=== PATIENT | male | born 1980 ===

== ENCOUNTER 2025-03-27 06:03 | Emergency (ER) | payer MEDICAID, SELFPAY ==
--- OUTSIDE RECORDS SUMMARY | 2015-09-12 19:00 | XMS_ITS | Continuity of Care Document ---
Author Organization BALDEMAR Castelan Address [address] [facility] [facility] [facility] [address] [place] [address] Phone Care Team Providers Care Executive Wellness Programs Director Name Role Phone Unavailable Unavailable Unavailable Allergies, [...] Providers Copied on Encounter BALDEMAR Castelan, [address], [place], [place], [address], [place] tel:[phone] [facility] No Information 5 No Information Referring Provider: Donell June MD, [address], [place], [address]. tel:[phone] Offic/outpt E&m Estab Mod-hi 2 Flip, [facility], [address], [place], [place], [address], [place] tel:[phone] [facility] No Information 3 Ynes Cannon. [address], [address], [place], [address], [place]. tel:[phone] Referring Provider: REFERRAL SELF, JODY. Flip [facility], [address], [place], [place], [address], [place] tel:[phone] Erica Castelan [facility] 7390 No Information 3 Candelario DPT Cricket. [address], [place], [place], [address], [place]. tel:[phone] Referring Provider: REFERRAL SELF, [place]. Flip [facility], [address], [place], [place], [address], [place] tel:[phone] Erica Castelan [facility] [address] No Information 3 Candelario DPT Cricket. [address], [place], [place], [address], [place]. tel:[phone] Referring Provider: REFERRAL SELF, JODY. Flip [facility], [address], [place], [place], [address], [place] tel:[phone] Erica Castelan [facility] [address] No Information 3 Candelario DPT Cricket. [address], [place], [place], [address], [place]. tel:[phone] Referring Provider: REFERRAL SELF, JODY. Flip [facility], [address], [place], [place], [address], [place] tel:[phone] [facility] No Information 3 Eden Pierre. [address], [place], [address], [place]. tel:[phone] Referring Provider: REFERRAL SELF, [place]. Offic/outpt E&m Estab Mod-hi 2 Flip [facility], [address], [place], [place], [address], [place] tel:[phone] [facility] No Information 3 Schwemm Mya. [address], [place], [place], [address], [place]. tel:[phone] Referring Provider: REFERRAL SELF, [place]. Offic/outpt E&m Estab Mod-hi 2 Flip [facility], [address], [place], [place], [address], [place] tel:[phone] [facility] No Information 3 Schwemm Mya. [address], [place], [place], [address], [place]. tel:[phone] Referring Provider: REFERRAL SELF, JODY. Flip, [facility], [address], [place], [place], [address], [place] tel:[phone] [place] Castelan [facility] [address] No Information 3 Luann Marjorie. [address], [address], [place], [address], [place]. tel:[phone] Referring Provider: REFERRAL SELF, [place] Offic/outpt E&m New Mod-hi 45 Flip [facility], [address] [facility] [address], [place], [place], [address], [place] tel:[phone] [facility] No Information 3 Luciano Roque. [address] [facility], [address], [place], [place], [address], [place]. tel:[phone] Referring Provider: REFERRAL SELF, JODY. Family History [...]
--- OUTSIDE RECORDS SUMMARY | 2021-10-31 11:14 | XMS_ITS | Continuity of Care Document ---
Author Organization [facility] sudarshan Address [address] [place] [phone] Phone Care Team Providers Care Supervisor Accounting Clerks Name Role Phone Will Ata LEO Unavailable Unavailabl e Allergies, Adverse Reactions, Alerts Substance Reaction Status Criticality aspartame Active No Information DIPHENHYDRAMINE HCL Active No Infor mation Medications Medication Instructions Dosage Effective Dates (start - stop) Status Comments Ativan 1 mg tablet take 0.5 - 2 Tablet by oral route 2 times every day as needed 0.5 MG - Active oxycodone 5 mg tablet take 1 - 2 Tablet by ORAL route every 4 - 6 hours prn, max 4/day 5 MG - Active Procedures Procedure Date OFFICE/OUTPATIENT VISIT, EST OFFICE/OUTPATIENT VISIT, EST OFFICE CONSULTATION Advance Directives Directive Yes / No Effective Date File Name No Information Encounters Encounter Description Practice Location Reason(s) For Visit Diagnoses Date Provider Providers Copied on Encounter [facility], [address] [place], [place], [id number] , [place] tel:[phone] [facility] No Information 2 Will Ata. [address] [place], [place], [address] , [place]. tel:[phone] OFFICE/OUTPAT IENT VISIT, EST [facility], [address] [place], [place], [id number] , [place] tel:[phone] [facility] [place] Back Pain (chief complaint) LumbagoDegeneration of lumbar or lumbosacral intervertebral disc Sep-2 1-201 5 Abad Courtney. [address] [place], [id number] , [place]. tel: [phone] Referring Provider: Ivonne Curiel [address], [place], [address]. tel:[phone] OFFICE/OUTPAT IENT VISIT, EST [facility], [address] [place], [id number] , [place] tel: [phone] [facility] [place] Back Pain (chief complaint) LumbagoDegeneration of lumbar or lumbosacral intervertebral discCurrent use of a medication 5 Abad Courtney. [address] [place], [address] , [place]. tel: [phone] Referring Provider: Ivonne Curiel [address], [place], [address]. tel:[phone] [facility], [address] [facility] [place], [id number] , [place] tel: [phone] [facility] [place] Current use of a medication 5 Abad Courtney. [address] [facility] [place], [address] , [place]. tel: [phone] OFFICE CONSULTATION [facility], [address] [facility] [place], [address] , [place] tel: [phone] [facility] [place] Back Pain (chief complaint) Degeneration of lumbar or lumbosacral intervertebral discLumbago 0 5 Abad Courtney. [address] [place], [id number] , [place]. tel:[phone] Referring Provider: Ivonne Curiel [address], [place], [address]. tel:[phone] Family History Family Member Type Diagnosis Age At Onset No Information Payers Payer name Insurance type Covered green party ID Authoriza tipiyush(s) Blue Cross Blue Shield Of [facility] [id number] 00 Social History Type Description Quantity Date [...] to continue with this regimen. Back Pain (comments) This patien t is referred by Dr. Londono.Karel is here today for his inital consult regarding his low back pain which began 10 years ago. He states he went 3 years without any treatment and eventually had an MRI taken which showed a herniated disc. He had his imaging done at [facility]. He consulted a surgeon at [facility] who did not recommend surgery. He has done injections with some relief and relies mostly on Tramadol for pain relief. He also has tried Gabapentin which gave him headaches, as well as other muscle relaxers. He currently does pool therapy which he states gives him significant relief. Back Pain Onset: 10 years ago. Severity level is moderate. Duration: chronic. Location of pain is middle back, lower back and gluteal area. Pain is radiated to the Right Leg.The patient describes the pain as an ache and sharp. Symptoms are aggravated by daily activities, sitting and standing. Symptoms are relieved by heat, ice, lying down, pain meds/drugs and rest. Functional Status Date Functional Assessmen t No Information Instructions Date Instruction Additional Infor mation No Information Assessments Type Assessment Date No Information Patient Care Teams Name Effective Dates (start - stop) Status Members No Information
[2025-03-27 06:15] VITALS: BP 157/64; PULSE 62; RESP 18; TEMP 36.8; O2SAT 99; BMI 30.3
--- NOTE | 2025-03-27 06:29 | ED.GENADULT ---
HPI - General Adult General Chief complaint: Unspecified Complaint, Adult Stated complaint: rechecked for a refill on a medication Time Seen by Provider: 03/27/25 06:20 History of Present Illness HPI narrative: Patient reports use of methadone for years. States that he typically takes it ?early in the morning?. This morning at around 4:00 a.m. when he went to take his last dose of his medication, he reports that his dog kick did over into the toilet. Patient states that he is already starting to feel nauseated and shaky as a result. Reports that his last dose was yesterday at around 5:00 a.m.. He reports nausea, body aches, shakiness and anxiety. He denies use of any other illicit drugs. He denies any injury or trauma. He reports that he is due to visit his clinic this morning. Tells me the appointment is at 5:00 a.m., was told to come here. The bit confusing , as if he were due for his appointment, he would have been given more medication. And is more likely that his appointment when happen tomorrow. Patient does not have an address listed within our system, he does not have a primary care doctor within our system. My nursing team did pull up his records through [employer], it lists a [place] address, patient has not yet been registered to verify if this is still accurate. He reports that his clinic is [facility] in [place]. Vital signs were reviewed prior to going into the room with the patient. Visually, as soon as I enter the room, he tells me that he is going to throw up and I give him an emesis bag and he wrecked his several times and does not vomit. The emesis bag is fully clean. He did not have any of this behavior prior to my entering the room. I verify his story and began asking questions. I let him know that since he is not an established patient here, we do not have his methadone prescription, we would not have access to the medication, we would not be giving him methadone or another opiate today. He is welcome to contact his opiate clinic and if they feel it is appropriate to give him another dose, they are welcome to do so, but we will not be doing that as that is not part of his medication arrangement. I offered treatment with another medications such as Tylenol and some Zofran for his nausea which he declined and elected to leave against medical advice. Opiate withdrawal can be uncomfortable but it would be unexpected that he would be having symptoms just 24 hours after last dose due to the long half-life of methadone. Patient has elected to leave against medical advice, he is encouraged to contact his opiate clinic for further guidance. Related Data Home Medications ?Medication ?Instructions ?Recorded ?Confirmed methadone 10 mg tablet 50 mg PO DAILY 03/27/25 03/27/25 Allergies Allergy/AdvReac Type Severity Reaction Status Date / Time diphenhydramine (From Allergy Mild Hives Verified 03/27/25 06:18 Benadryl) [facility] Medical History (Updated 03/27/25 @ 06:38 by Bernadette Soliman MD) H/O drug abuse ?F19.11 - Other psychoactive substance abuse, in remission (ICD-10) [place] (generalized anxiety disorder) ?F41.1 - Generalized anxiety disorder (ICD-10) Depression, recurrent ?F33.9 - Major depressive disorder, recurrent, unspecified (ICD-10) Thrombocytopenia ?D69.6 - Thrombocytopenia, unspecified (ICD-10) TBI (traumatic brain injury) ?S06.9XAA - Unspecified intracranial injury with loss of consciousness status unknown, initial encounter (ICD-10) Seizures ?R56.9 - Unspecified convulsions (ICD-10) Intussusception ?K56.1 - Intussusception (ICD-10) Back pain ?M54.9 - Dorsalgia, unspecified (ICD-10) Anxiety disorder ?F41.9 - Anxiety disorder, unspecified (ICD-10) Surgical History (Updated 03/27/25 @ 06:25 by Hiploito Velazquez RN) History of wisdom tooth extraction ?K08.409 - Partial loss of teeth, unspecified cause, unspecified class (ICD-10) Social History Smoking Status: Former smoker Do you use any of these nicotine containing products: Vaping Products Second hand tobacco smoke exposure: No How often do you have a drink containing alcohol: never AUDIT-C Alcohol total score: 0 Non-prescribed substance use: other Non-prescribed substance use details: methadone Exam Const: Vital Signs, click to edit/add: Vital Signs - 24 hr 03/27/25 06:15 Temperature 98.3 F Pulse Rate [Right Pulse Oximeter] 62 Respiratory Rate 18 Blood Pressure [Ri ght Upper Arm] 157/64 H Pulse Oximetry 99 Oxygen Delivery Me thod Room Air Course Vital Signs Vital signs: Initial Vital Signs Temperature 98.3 F 03/27/25 06:15 Temperature Source Temporal Artery Scan 03/27/25 06:15 Pulse Rate 62 03/27/25 06:15 Respiratory Rate 18 03/27/25 06:15 Blood Pressure 157/64 H 03/27/25 06:15 Blood Pressure Mean 95 03/27/25 06:15 Blood Pressure Position Supine 03/27/25 06:15 Pulse Oximetry 99 03/27/25 06:15 Oxygen Delivery Method Room Air 03/27/25 06:15 Vital Signs Temperature 98.3 F 03/27/25 06:15 Pulse Rate 62 03/27/25 06:15 Respiratory Rate 18 03/27/25 06:15 Blood Pressure 157/64 H 03/27/25 06:15 Pulse Oximetry 99 03/27/25 06:15 Oxygen Delivery Method Room Air 03/27/25 06:15 Temperature 98.3 F 03/27/25 06:15 Pulse Rate 62 03/27/25 06:15 Respiratory Rate 18 03/27/25 06:15 Blood Pressure 157/64 H 03/27/25 06:15 Pulse Oximetry 99 03/27/25 06:15 Oxygen Delivery Method Room Air 03/27/25 06:15 Discharge Plan Discharge Clinical Impression: Opiate withdrawal Patient Disposition: Left Against Medical Advice Prescriptions: No Action methadone 10 mg tablet 50 mg PO DAILY Stand Alone Forms: MyHealth Info Instructions
--- OUTSIDE RECORDS SUMMARY | 2025-03-27 06:48 | XMS_ITS | Clinical Summary ---
Author Organization [facility] Address [address] , [address] [place] [address] Phone Care Team Providers Care Personal Property Assessor Name Role Phone Rufus Mckeon MD [id number] [phone] Conditions or Problems Problem Name Problem Code Onset Date Status Entry Date Provider Comment Standard Description Annotate Cognitive changes 347199826 (SNOMED CT) 12/19 Active 12/19 Rufus Mckeon MD Impaired cognition MRI, brain, abnormal 174594400 (SNOMED CT) 12/19 Active 12/19 Rufus Mckeon MD Magnetic resonance imaging of brain abnormal Opioid dependence with opioid-induc ed disorder F11.29 (ICD-10-CM ) 06/10 Active 12/19 Rufus Mckeon MD Opioid dependence with unspecified opioid-induced disorder Imported from [facility]: [facility] (19-Dec-2021 at 01:43:48 PM) Lumbar radiculopath y 821291433 (SNOMED CT) 04/28 Active 12/19 Rufus Mckeon MD Lumbar radiculopathy Imported from [facility]: [facility] (19-Dec-2021 at 01:43:48 PM) Injury of knee, leg, ankle and foot S89.90xA (ICD-10-CM ) Active 12/19 Rufus Mckeon MD Unspecified injury of unspecified lower leg, initial encounter Imported from [facility]: [facility] (19-Dec-2021 at 01:43:48 PM) History of heroin use Z87.898 (ICD-10-CM ) 06/04 Active 12/19 Rufus Mckeon MD Personal history of other specified conditions Imported from [facility]: [facility] (19-Dec-2021 at 01:43:48 PM) 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 (19-Dec-2021 at 01:43:07 PM) Depression, recurrent 167203025 (SNOMED CT) 11/14 Active 12/19 Rufus Mckeon MD Recurrent depression Imported from [facility]: [facility] (19-Dec-2021 at 01:43:07 PM) Chronic bilateral low back pain M54.50 (ICD-10-CM ) 05/10 Active 12/19 Rufus Mckeon MD Low back pain, unspecified Imported from [facility]: [facility] (19-Dec-2021 at 01:43:07 PM) Benzodiazepi ne dependence 347406519 (SNOMED CT) 05/30 Active 12/19 Rufus Mckeon MD Benzodiazepine dependence Imported from [facility]: [facility] (19-Dec-2021 at 01:43:07 PM) Amnesia 17176649 (SNOMED CT) 11/14 Active 12/19 Rufus Mckeon MD Amnesia Imported from [facility]: [facility] (19-Dec-2021 at 01:43:07 PM) Medications Medication Instructions Start Date Stop Date Generic Name NDC Provider DIVALPROEX SODIUM 500 MG TBEC Take 3 tab q AM and 4 tabs q PM divalproex [id number] Rufus Mckeon MD DIVALPROEX SODIUM 500 MG TBEC Take 3 tab q AM and 4 tabs q PM 6 divalproex [id number] eBrnadette Brenner RN DIVALPROEX SODIUM 500 MG TBEC Take 4 tablet by mouth twice a day Take 4 tab q AM and 5 tabs q PM 6 divalproex [id number] Bernadette Brenner RN DIVALPROEX SODIUM 500 MG TBEC Take 4 tablet by mouth twice a day 6 divalproex [id number] Bernadette Brenner RN DIVALPROEX SODIUM 500 MG TBEC 4 tablet by mouth once a day 6 divalproex [id number] Bernadette Brenner RN METHADONE HCL 5 MG/5ML SOLN Take ml by mouth methadone [id number] Kimberli Brenner RN ALPRAZOLAM 2 MG TABS 1 tablet by mouth once a day 0 alprazolam [id number] Bernadette Brenner RN ALPRAZOLAM 2 MG TABS One po qd 0 alprazolam [id number] QIEUSER QIEUSER METHADONE HCL 5 MG/5ML SOLN Take by mouth. methadone 25554876453 QIEUSER QIEUSER DIVALPROEX SODIUM 500 MG TBEC 4 tablets daily 6 divalproex [id number] QIEUSER QIEUSER Medications Administered No information available. Allergies, Adverse Reactions, Alerts Allergy Name Reaction Description Start Date Severity Statu s Provider DIPHENHYDRAMINE Rash Mild Active Segun Mckeon MD DIPHENHYDRAMINE HCL Rash Mild Active Rufus Mckeon MD ACETONE Rash Severe Active Rufus christian MD Results Date Name Value Unit Range Flag Description Office Visit: Office Visit S eizures, amnesia 3 MRIs [facility] 2 fax SMOK STATUS current some day smoker Tobacco smoking status ABSOLUTE MON 0.7 10*3/uL Monocyte s [#/volume] in Blood GLOBULIN SER 2.7 Globulin , Serum EGFR NOT AFA >60 mL/min/1. 73m2 Glomerular filtratio n rate/1.73 sq M.predicted among non-blacks [Volume Rate/Area] in Serum, Plasma or Blood by Creatinine-based formula (MDRD) ABS EOS 0.1 {Cells}/u L Eosinophils [#/volume] in Blood CA 8.6 mg/dL Calcium [Mass /volume] in Serum or Plasma ABSOLUTE BAS normal 10*3/uL Basophil s [#/volume] in Blood ABS LYMPHOCY 1.6 10*3/uL Absolute Lymphocytes ABS NEUTROPH 3.4 10*3/uL Neutroph ils [#/volume] in Blood GFR >60 mL/min Glomerular fi ltration rate/1.73 sq M.predicted among non-blacks [Volume Rate/Area] in Serum, Plasma or Blood by Creatinine-based formula (MDRD) % BASO AUTO 0.5 % basophils as percent of blood leukocytes, automated count % EOS AUTO 1.0 % Eosinophil s/100 leukocytes in Blood by Automated count CO2 TOTAL 26 mmol/L carbon diox melinda, serum, total GLUCOSE SER 105 mg/dL Glucose [ Mass/volume] in Serum or Plasma MPV 9.8 fL Platelet mean volume [Entitic volume] in Blood by Rajeev BUN/CREAT 9 Urea nitrogen/Creatinine [Mass Ratio] in Serum or Plasma MONOCYTE % 11.7 % Monocytes/ 100 leukocytes in Blood by Automated count MCH 31.8 pg MCH [Entitic mass] by Automated count RDW 14.2 % Erythrocyte distribution width [Ratio] by Automated count MCHC 33.7 % MCHC [Mass/vo lume] by Automated count PMN % 59.0 % Neutrophils/1 00 leukocytes in Blood by Automated count MCV 95 fL MCV [Entitic volume] by Automated count ANION GAP 6 Anion gap 4 in Serum or Plasma SODIUM 136 mmol/L Sodium [Moles /volume] in Serum or Plasma A/G RATIO 1.3 Albumin/Maryellen bulin [Mass Ratio] in Serum or Plasma WBC 5.8 10*3/mm3 Leukocytes [ #/volume] in Blood by Automated count RBC 4.15 10*6/mm3 Erythrocytes [#/volume] in Blood by Automated count PLATELETS 42 10*3/mm3 Platelets [#/volume] in Blood by Automated count HGB 13.2 g/dL Hemoglobin [Mass/volume] in Blood HCT 39.2 % Hematocrit [V olume Fraction] of Blood by Automated count BILI TOTAL 0.2 mg/dL Bilirubin. total [Mass/volume] in Serum or Plasma SGPT (ALT) 13 U/L Alanine aminotransferase [Enzymatic activity/volume] in Serum or Plasma SGOT (AST) 16 U/L Aspartate aminotransferase [Enzymatic activity/volume] in Serum or Plasma PROTEIN, TOT 6.2 g/dL Protein [Mass/volume] in Serum or Plasma POTASSIUM 4.7 mmol/L Potassium [Moles/volume] in Serum or Plasma TSH 3.32 u[iU]/mL Thyrotropin [Units/volume] in Serum or Plasma CREATININE 0.98 mg/dL Creatinine [Mass/volume] in Serum or Plasma CHLORIDE 104 mmol/L Chloride [Moles/volume] in Serum or Plasma BUN 9 mg/dL Urea nitrogen [Mass/volume] in Serum or Plasma ALK PHOS 66 U/L Alkaline stacy sphatase [Enzymatic activity/volume] in Blood ALBUMIN 3.5 g/dL Albumin [Mass /volume] in Serum or Plasma Internal Other: Authorizatio n - OBS [email or web address] Yes Authoriza tion: Release of Information - Authorize [facility] - Payment and Healthcare Operations ROIAUTHOTHER Yes Authoriz ation: Release of Information - Authorize Others/Insurance - Payment and Healthcare Operations HIECONSENT Yes Consent To Release information to the Health Information Exchange (HIE) [email or web address] Yes Authorizat ion: Authorization for [facility] to leave messages, voicemail, send text messages, send emails AUTHRELHCARE Yes Authoriz ation: Release/Retrieval of Information to/from Healthcare Facilities, Pharmacy Benefit Payers and Providers AUTHPRIVPRAC Yes Authoriz ation: Notice of privacy practices AUTHBENEFIT Yes Authoriza tion: Assignment of Benefits and Payment Agreement Internal Other: Verbal Autho rization/Emergency Contact - OBS VERBAL_EMER Done Verbal au thorization and emergency contact Plan of Care Type Date Detail Pending order CBC with Diff/Pl atelet Pending order Valproic Acid To carmencita (Depakote) Pending order CBC with Diff/Pl atelet Pending order Valproic Acid To carmencita (Depakote) Pending order Sleep Consult Pending order Sleep Consult Pending order Calcium Serum Pending order Vitamin B12 Pending order CBC with Diff/Pl atelet Pending order Comp Metabolic P suman (14) Pending order TSH Pending order Ammonia Pending order Valproic Acid To carmencita (Depakote) Pending order ALT (SGPT) Pending order AST (SGOT) Pending order CBC with Diff/Pl atelet Pending order Valproic Acid To carmencita (Depakote) Pending order EEG 3hr Pending order Follow up after testing in clinic or telemedicine Pending order Follow up after testing in clinic or telemedicine Pending order Follow up as nee ded Pending order TSH Pending order ANCA Pending order CBC with Diff/Pl atelet Pending order ESR (Sedimentati on Rate) Pending order Protein C Panel Pending order Protein S Panel Pending order Factor V Leiden Mutation Pending order Neuropsychology Evaluation Pending order EEG Sleep Depriv ed (41min) Pending order MRI-Brain W/WO Pending order MRI-Brain W/WO Pending order Driving Evaluati on Pending order Driving Evaluati on Pending order ALT (SGPT) Pending order AST (SGOT) Pending order CBC with Diff/Pl atelet Pending order Valproic Acid To carmencita (Depakote) Procedures Code Procedure Name Date Entry Date ORDERS Calcium Serum ORDERS Vitamin B12 ORDERS CBC with Diff/Platelet 05/12 ORDERS Comp Metabolic Panel (14) 20 05/05/29 ORDERS TSH ORDERS Ammonia ORDERS Valproic Acid Total (Depakote) ORDERS ALT (SGPT) ORDERS AST (SGOT) ORDERS CBC with Diff/Platelet 05/08 ORDERS Valproic Acid Total (Depakote) ORDERS EEG 3hr CPT-40759 EEG Setup CPT-54917 Video EEG 2-12hrs () 05/07 CPT-77744 Video EEG 2-12hrs (Nurys) 202 10/22/23 ORDERS Follow up as needed ORDERS TSH ORDERS ANCA ORDERS CBC with Diff/Platelet 03/27 ORDERS ESR (Sedimentation Rate) 202 10/21/13 ORDERS Protein C Panel ORDERS Protein S Panel ORDERS Factor V Leiden Mutation 202 10/21/13 ORDERS Neuropsychology Evaluation 2 CPT-30260 Npsy Interview w/Provider - 1st hour 2021 CPT-13189 Npsy Interp/Rpt by Provider - 1st hour 05/03/23 CPT-70097 Npsy Interp/Rpt by Provider - 2 hours 10/20/22 CPT-20088 Npsy Test by Tech (2+ Tests) - 1st 30 min CPT-99936 Npsy Test by Tech (2+ Tests) - 3 hours 05/03/23 CPT-73066 EEG EXTENDED 41-60mins (END) ORDERS EEG Sleep Deprived (41min) 2 ORDERS ALT (SGPT) ORDERS AST (SGOT) ORDERS CBC with Diff/Platelet 12/19 ORDERS Valproic Acid Total (Depakote) Vital Signs Date Name Value Unit Description BMI (Body Mass Index) 29.75 kg/m2 Bod y Mass Index (Ratio) BP Diastolic 79 mm[Hg] blood pressu re, diastolic BP Systolic 130 mm[Hg] blood pressur e, systolic Heart Rate 68 /min pulse rate Height 72.99 [in_us] height E&M Respiratory Rate 11 /min respirat ory rate E&M Weight Measured 224.6 [lb_av] weight E& M Weight Measured 224.6 [lb_av] weight E& M Weight Measured 102.09 kg weight in kilograms E&M Immunizations No information available. Advance Directives No information available.
[2025-03-27 06:49] VITALS: BP 157/64; PULSE 62; RESP 18; TEMP 36.8
== END 2025-03-27 06:49 | disposition left against medical advice (07) ==
LOC: ED 06:47
PROVIDERS: Emergency Provider Family Medicine
DX: F11.23 Opioid dependence with withdrawal (principal); Z87.891 Personal history of nicotine dependence; Z53.21 Procedure and treatment not carried out due to patient leaving prior to being seen by health care provider
CPT/HCPCS: 99281; 99282; 99283

== ENCOUNTER 2025-04-30 17:58 | Outpatient (CLI) | payer BC, SELFPAY | END 2025-04-30 17:59 | disposition home or self-care (01) | LOC: AMB 05-01 15:21 | PROVIDERS: Visit Provider Emergency Medicine | DX: R56.9 Unspecified convulsions (principal); R11.10 Vomiting, unspecified | CPT/HCPCS: A0425; A0427 ==

== ENCOUNTER 2025-04-30 18:42 | Emergency (ER) | payer BC, SELFPAY ==
--- OUTSIDE RECORDS SUMMARY | 2015-09-12 19:00 | XMS_ITS | Continuity of Care Document ---
Author Organization BALDEMAR Castelan Address [address] [place] [address] Phone Care Team Providers Care Activities Attendant Name Role Phone Unavailable Unavailable Unavailable Allergies, Adverse Reactions, Alerts Substance Reaction Status Criticality acetone Active No Information DIPHENHYDRAMINE HCL Rashes, sweating, dizziness Active No Information Medications Medication Instructions Dosage Effective Dates (start - stop) Status Comments methocarbamol 750 mg tablet take 1 Tablet by ORAL route every 8 hours 750 MG - Active Xanax 0.5 mg tablet take 1 (0.5MG) by oral route every day 0.5 MG - Active acetaminophen 500 mg capsule take as needed - Active Procedures Procedure Date No Show Visit Fee Offic/outpt E&m Estab Mod-hi 2 13 Therapeutic Procedure Neuromuscular Re-education Manual Therapy Manual Therapy Neuromuscular Re-education Neuromuscular Re-education Therapeutic Procedure Depomedrol 80mg Inject Joint Large Ultrason Guidan Needle Bx-rad 3 Offic/outpt E&m Estab Mod-hi 2 13 Offic/outpt E&m Estab Mod-hi 2 13 Phys Therap Eval Therapeutic Activities Neuromuscular Re-education Offic/outpt E&m New Mod-hi 45 3 QA DONE Advance Directives Directive Yes / No Effective Date File Name No Information Encounters Encounter Description Practice Location Reason(s) For Visit Diagnoses Date Provider Providers Copied on Encounter BALDEMAR Castelan, [address], [place], [place], [address], [place] tel:[phone] [facility] No Information 5 No Information Referring Provider: Donell June MD, [address], [place], [address]. tel:[phone] Offic/outpt E&m Estab Mod-hi 2 Flip, [facility], [address], [place], [place], [address], [place] tel:[phone] [facility] No Information 3 Ynes Cannon. [address], [address], [place], [address], [place]. tel:[phone] Referring Provider: REFERRAL SELF, JODY. Flip [facility], [address], [place], [place], [address], [place] tel:[phone] Erica Castelan [facility] [address] No Information 3 Candelario DPT Cricket. [address], [place], [place], [address], [place]. tel:[phone] Referring Provider: REFERRAL SELF[place] Flip [facility], [address], [place], [place], [address], [place] tel:[phone] Erica Castelan [facility] [address] No Information 3 Candelario DPT Cricket. [address], [place], [place], [address], [place]. tel:[phone] Referring Provider: REFERRAL SELF, JODY. Flip [facility], [address], [place], [place], [address], [place] tel:[phone] Erica Castelan [facility] [address] No Information 3 Candelario DPT Cricket. [address], [place], [place], [address], [place]. tel:[phone] Referring Provider: REFERRAL SELF, JODY. Flip [facility], [address], [place], [place], [address], [place] tel:[phone] [facility] No Information 3 Eden Pierre. [address], [place], [address], [place]. tel:[phone] Referring Provider: REFERRAL SELF[place]. Offic/outpt E&m Estab Mod-hi 2 Flip [facility], [address], [place], [place], [address], [place] tel:[phone] [facility] No Information 3 Schwemm Mya. [address], [address], [place], [place], [address], [place]. tel:[phone] Referring Provider: REFERRAL SELF[place] Offic/outpt E&m Estab Mod-hi 2 Flip [facility], [address], [place], [place], [address], [place] tel:[phone] [facility] No Information 3 Schwemm Mya. [address], [address], [place], [place], [address], [place]. tel:[phone] Referring Provider: REFERRAL SELF, JODY. Flip, [facility], [address], [place], [place], [address], [place] tel:[phone] Penningtonmartin Castelan [facility] [address] No Information 3 Luann Marjorie. [address], [address], [place], [place], [address], [place]. tel:[phone] Referring Provider: REFERRAL SELF[place] Offic/outpt E&m New Mod-hi 45 Flip [facility], [address], [place], [place], [address], [place] tel:[phone] [facility] No Information 3 Luciano Roque. [address], [address], [place], [place], [address], [place]. tel:[phone] Referring Provider: REFERRAL SELF, JODY. Family History Family Member Type Diagnosis Age At Onset No Information Payers Payer name Insurance type Covered republican ID Authoriza tion(s) No Information Social History Type Description Quantity Date Captured Comments Sex Male Smoking Status No Information Chief Complaint And Reason For Visit No Information Reason For Referral Reason For Referral No Information History Of Present Illness Encounter Date Complaint History Of Prese nt Illness No Information Functional Status Date Functional Assessmen t No Information Instructions Date Instruction Additional Infor mation No Information Assessments Type Assessment Date No Information Patient Care Teams Name Effective Dates (start - stop) Status Members No Information
--- OUTSIDE RECORDS SUMMARY | 2015-09-12 19:00 | XMS_ITS | Continuity of Care Document ---
Author Organization BALDEMAR Castelan Address [address] [facility] [address] [place] [address] Phone Care Team Providers Care Publishing Systems Analyst Name Role Phone Unavailable Unavailable Unavailable Allergies, [...] Providers Copied on Encounter BALDEMAR Castelan, [address], [place], [place], [address], [place] tel:[phone] [facility] No Information 5 No Information Referring Provider: Donell June MD, [address], [place], [address]. tel:[phone] Offic/outpt E&m Estab Mod-hi 2 Flip, [facility], [address], [place], [place], [address], [place] tel:[phone] [facility] No Information 3 Ynes Cannon. [address], [address], [place], [address], [place]. tel:[phone] Referring Provider: REFERRAL SELF, JODY. Flip [facility], [address], [place], [place], [address], [place] tel:[phone] [facility] [address] No Information 3 Candelario DPT Cricket. [address], [place], [place], [address], [place]. tel:[phone] Referring Provider: REFERRAL SELF, [place]. Flip [facility], [address], [place], [place], [address], [place] tel:[phone] [facility] [address] No Information 3 Candelario DPT Cricket. [address], [place], [place], [address], [place]. tel:[phone] Referring Provider: REFERRAL SELF, JODY. Flip [facility], [address], [place], [place], [address], [place] tel:[phone] [facility] [address] No Information 3 Candelario DPT Cricket. [address], [place], [place], [address], [place]. tel:[phone] Referring Provider: REFERRAL SELF, JODY. Flip [facility], [address], [place], [place], [address], [place] tel:[phone] [facility] No Information 3 Eden Pierre. [address], [place], [address], [place]. tel:[phone] Referring Provider: REFERRAL SELF, [place]. Offic/outpt E&m Estab Mod-hi [address] [facility], [address], [place], [place], [address], [place] tel:[phone] [facility] No Information 3 Schwemm Mya. [address], [place], [place], [address], [place]. tel:[phone] Referring Provider: REFERRAL SELF, [place]. Offic/outpt E&m Estab Mod-hi [address] [facility], [address], [place], [place], [address], [place] tel:[phone] [facility] No Information 3 Schwemm Mya. [address], [place], [place], [address], [place]. tel:[phone] Referring Provider: REFERRAL SELF, JODY. Flip, [facility], [address], [place], [place], [address], [place] tel:[phone] [facility] [address] No Information 3 Luann Marjorie. [address], [place], [place], [address], [place]. tel:[phone] Referring Provider: REFERRAL SELF, [place]. Offic/outpt E&m New Mod-hi [address] [facility], [address] [facility] [address], [place], [place], [address], [place] tel:[phone] [facility] No Information 3 Luciano Roque. [address] [facility], [address], [place], [place], [address], [place]. tel:[phone] Referring Provider: REFERRAL SELF, JODY. Family History Family Member Type Diagnosis Age At Onset No Information Payers Payer name Insurance type Covered green party ID Authoriza tion(s) No Information Social History [...]
--- OUTSIDE RECORDS SUMMARY | 2021-10-31 11:14 | XMS_ITS | Continuity of Care Document ---
Author Organization [facility] sudarshan Address [address] [place] [id number] Phone Care Team Providers Care Home Theatre Technician Name Role Phone Will Ata LEO Unavailable Unavailabl e Allergies, Adverse Reactions, Alerts Substance Reaction Status Criticality aspartame Active No Information DIPHENHYDRAMINE HCL Active No Infor mation Medications Medication Instructions Dosage Effective Dates (start - stop) Status Comments oxycodone 5 mg tablet take 1 - 2 Tablet by ORAL route every 4 - 6 hours prn, max 4/day 5 MG - Active Ativan 1 mg tablet take 0.5 - 2 Tablet by oral route 2 times every day as needed 0.5 MG - Active Procedures Procedure Date OFFICE/OUTPATIENT VISIT, EST OFFICE/OUTPATIENT VISIT, EST OFFICE CONSULTATION Advance Directives Directive Yes / No Effective Date File Name No Information Encounters Encounter Description Practice Location Reason(s) For Visit Diagnoses Date Provider Providers Copied on Encounter [facility], [address] [place], [place], [id number] , [place] tel:[phone] [facility] No Information 2 Will Ata. [address] [place], [place], [id number] , [place]. tel:[phone] OFFICE/OUTPAT IENT VISIT, EST [facility], [address] [place], [place], [id number] , [place] tel:[phone] [facility] Eric[place] Back Pain (chief complaint) LumbagoDegeneration of lumbar or lumbosacral intervertebral disc Sep-2 1-201 5 Abad Courtney. [address] [place], [id number] , [place]. tel: [phone] Referring Provider: Ivonne Curiel [address], [place], [address]. tel:[phone] OFFICE/OUTPAT IENT VISIT, EST [facility], [address] [place], [id number] , [place] tel: [phone] [facility] [place] Back Pain (chief complaint) LumbagoDegeneration of lumbar or lumbosacral intervertebral discCurrent use of a medication 5 Abad Courtney. [address] [place], [id number] , [place]. tel: [phone] Referring Provider: Ivonne Curiel [address], [place], [address]. tel:[phone] [facility], [address] [facility] [place], [id number] , [place] tel: [phone] [facility] [place] Current use of a medication 5 Abad Courtney. [address] [facility] [place], [id number] , [place]. tel: [phone] OFFICE CONSULTATION [facility], [address] [facility] [place], [address] , [place] tel: [phone] [facility] [place] Back Pain (chief complaint) Degeneration of lumbar or lumbosacral intervertebral discLumbago 0 5 Abad Courtney. [address] [place], [id number] , [place]. tel:[phone] Referring Provider: Ivonne Curiel [address], [place], [address]. tel:[phone] Family History Family Member Type Diagnosis Age At Onset No Information Payers Payer name Insurance type Covered alliance party ID Authoriza tipiyush(s) Blue Cross Blue Shield Of [facility] [id number] 00 Social History Type Description Quantity Date Captured Comments Sex Male Smoking Status No Information Chief Complaint And Reason For Visit No Information Reason For Referral Reason For Referral No Information History Of Present Illness Encounter Date Complaint History Of Myrna nt Illness Back Pain (comments) Karel is he re today for follow up evaluation relating to his low back pain. He states increased pain in his mid back and reports a previous x-ray showed DDD. Back Pain Severity level i s moderate. Duration: chronic. The problem is worsening. It occurs persistently. Location of pain is middle back, lower back and right posterior knee. Pain is radiated to the left thigh.The patient describes the pain as an ache and sharp. Symptoms are aggravated by daily activities and working. Symptoms are relieved by lying down and rest. Back Pain Severity level i s mild. Duration: chronic. The problem is stable. It occurs occasionally. Location of pain is lower back.The patient describes the pain as an ache and sharp. Symptoms are aggravated by daily activities. Symptoms are relieved by pain meds/drugs and rest. Back Pain (comments) Karel is he re today for follow up and medication refills relating to his low back pain. He started doing pool therapy on his own and states he can't afford to do other PT programs. He added Robaxin and other medications for his anxiety to his medication regimen and states he is stable and woule like to continue with this regimen. Back Pain Onset: 10 years ago. Severity level is moderate. Duration: chronic. Location of pain is middle back, lower back and gluteal area. Pain is radiated to the Right Leg.The patient describes the pain as an ache and sharp. Symptoms are aggravated by daily activities, sitting and standing. Symptoms are relieved by heat, ice, lying down, pain meds/drugs and rest. Back Pain (comments) This patien t is referred by Dr. Londono.Karel is here today for his inital consult regarding his low back pain which began 10 years ago. He states he went 3 years without any treatment and eventually had an MRI taken which showed a herniated disc. He had his imaging done at [facility]. He consulted a surgeon at [facility] who did not recommend surgery. He has done injections with some relief and relies mostly on Tramadol for pain relief. He also has tried Gabapentin which gave him headaches, as well as other muscle relaxers. He currently does pool therapy which he states gives him significant relief. Functional Status Date Functional Assessmen t No Information Instructions Date Instruction Additional Infor mation No Information Assessments Type Assessment Date No Information Patient Care Teams Name Effective Dates (start - stop) Status Members No Information
--- OUTSIDE RECORDS SUMMARY | 2021-10-31 11:14 | XMS_ITS | Continuity of Care Document ---
Author Organization [facility] sudarshan Address [address] [place] [phone] Phone Care Team Providers Care Property Disposal Officer Name Role Phone Will Ata LEO Unavailable [...] Diagnoses Date Provider Providers Copied on Encounter [facility], [address] [place], [place], [id number] , [place] tel:[phone] [facility] No Information 2 Will Ata. [address] [place], [place], [id number] , [place]. tel:[phone] OFFICE/OUTPAT IENT VISIT, EST [facility], [address] [place], [place], [id number] , [place] tel:[phone] [facility] Erica Back Pain (chief complaint) LumbagoDegeneration of lumbar or lumbosacral intervertebral disc Sep-2 1-201 5 Abad Courtney. [address] [place], [id number] , [place]. tel: [phone] Referring Provider: Ivonne Curiel [address], [place], [address]. tel:[phone] OFFICE/OUTPAT IENT VISIT, EST [facility], [address] [place], [id number] , [place] tel: [phone] [facility] [place] Back Pain (chief complaint) LumbagoDegeneration of lumbar or lumbosacral intervertebral discCurrent use of a medication 5 Abad Courtney. [address] [place], [address] , [place]. tel: [phone] Referring Provider: Ivonne Curiel [address], [place], [address]. tel:[phone] [facility], [address] [facility] [place], [id number] , [place] tel: [phone] [facility] [place] Current use of a medication 5 Abad Courtney. [address] [facility] [place], [id number] , [place]. tel: [phone] OFFICE CONSULTATION [facility], [address] [facility] [place], [id number] , [place] tel: [phone] [facility] [place] Back Pain (chief complaint) Degeneration of lumbar or lumbosacral intervertebral discLumbago 0 5 Abad Courtney. [address] [place], [id number] , [place]. tel:[phone] Referring Provider: Ivonne Curiel [address], [place], [address]. tel:[phone] Family History Family Member Type Diagnosis Age At Onset No Information Payers Payer name Insurance type Covered democrat ID Authoriza tipiyush(s) Blue Cross Blue Shield Of [facility] [id number] 00 Social History Type Description Quantity Date [...] This patien t is referred by Dr. Londono.aKrel is here today for his inital consult regarding his low back pain which began 10 years ago. He states he went 3 years without any treatment and eventually had an MRI taken which showed a herniated disc. He had his imaging done at [facility]. He consulted a surgeon at [facility] who did not recommend surgery. He [...]
--- NOTE | 2025-04-30 18:45 | ED.SEIZURE ---
HPI - Seizure General Time Seen by Provider: 18:45 Date Seen: 04/30/25 Chief Complaint: Seizure Stated Complaint: Seizure Time Seen by Provider: 04/30/25 18:44 Source: patient, EMS, RN notes reviewed and old records reviewed Mode of arrival: EMS Limitations: no limitations History of Present Illness HPI Narrative: 44-year-old male with history of seizures and presents with seizure. History from patient and significant other. Apparently, patient has been throwing up all day, got up this evening and walking to the bathroom became confused and ?seized up. Significant other who is with him ease him to the floor and says he had a generalized tonic-clonic seizure lasting a couple minutes. After this, he was confused, would intermittently fall asleep and snore, then woke up and tried to push her away. Per EMS, patient was combative on arrival and was given Versed 2.5 mg. Patient self has no complaints now. Related Data Home Medications ?Medication ?Instructions ?Recorded ?Confirmed methadone 10 mg tablet 50 mg PO DAILY 03/27/25 03/27/25 Previous Rx's ?Medication ?Instructions ?Recorded levetiracetam 500 mg tablet 500 mg PO BID #60 tabs 04/30/25 (Keppra) Allergies Allergy/AdvReac Type Severity Reaction Status Date / Time diphenhydramine (From Allergy Mild Hives Verified 04/30/25 19:27 Benadryl) [facility] Medical History (Updated 04/30/25 @ 20:55 by Rock Rodriguez MD) H/O drug abuse ?F19.11 - Other psychoactive substance abuse, in remission (ICD-10) [place] (generalized anxiety disorder) ?F41.1 - Generalized anxiety disorder (ICD-10) Depression, recurrent ?F33.9 - Major depressive disorder, recurrent, unspecified (ICD-10) Thrombocytopenia ?D69.6 - Thrombocytopenia, unspecified (ICD-10) TBI (traumatic brain injury) ?S06.9XAA - Unspecified intracranial injury with loss of consciousness status unknown, initial encounter (ICD-10) Seizures ?R56.9 - Unspecified convulsions (ICD-10) Intussusception ?K56.1 - Intussusception (ICD-10) Back pain ?M54.9 - Dorsalgia, unspecified (ICD-10) Anxiety disorder ?F41.9 - Anxiety disorder, unspecified (ICD-10) Surgical History (Updated 03/27/25 @ 06:25 by Hipolito Velazquez RN) History of wisdom tooth extraction ?K08.409 - Partial loss of teeth, unspecified cause, unspecified class (ICD-10) Social History Smoking Status: Former smoker Do you use any of these nicotine containing products: Vaping Products Second hand tobacco smoke exposure: No How often do you have a drink containing alcohol: never AUDIT-C Alcohol total score: 0 Non-prescribed substance use: other Non-prescribed substance use details: methadone Exam Narrative: Exam Narrative: General: Well-developed and well-nourished, no acute distress Head: Atraumatic and normocephalic Eyes: Pupils are equal reactive, extraocular motions intact, conjunctiva clear ENT: External nose and ears are normal, posterior pharynx without erythema or exudate Neck: No midline cervical tenderness, full spontaneous range of motion the neck, trachea midline, no adenopathy Heart: Regular rate and rhythm no murmurs or thrills Lungs: Clear to auscultation bilaterally without wheezes or crackles Abdomen: Soft, right-sided abdominal tenderness,, nondistended with active bowel sounds Musculoskeletal: No tenderness, deformity, or edema Neurologic: Drowsy, oriented to person, no gross focal neurologic deficits, cranial nerves intact as tested Psych: Mood and affect are appropriate Skin: No rashes Const: Vital Signs, click to edit/add: Vital Signs - 24 hr 04/30/25 18:49 Temperature 97.6 F Pulse Rate [Pulse Oximeter] 99 Respiratory Rate 16 Blood Pressure [Le ft Upper Arm] 144/74 H Pulse Oximetry 88 Oxygen Delivery Me thod Room Air Course Course ED Course: Reviewed most recent primary care visit from August 2022, at that time patient was on methadone and Paxil, at that time also noted to have chronic thrombocytopenia which was attributed Depakote. Patient seen examined, presents today with a seizure and postictal status. Patient has been vomiting all day and had a generalized tonic-clonic seizure night. Significant other who witnessed this says it seems similar to prior seizures, he has had 3 total seizures in his lifetime. Was on Depakote, reports he is not taking it and then says he was taken off it. On exam here, patient is finally stable, some low but cooperative, no external signs of trauma canal does have some right lower quadrant tenderness. Labs ordered along with CT abdomen and pelvis to evaluate for right quadrant abdominal pain and vomiting. Fluids and Zofran ordered. Reevaluation(s) Time of Reevaluation #1: 20:01 Reevaluation #1: Labs independently interpreted by me with leukocytosis, this could be related to seizure activity or related to gastrointestinal symptoms from earlier today, normal basic panel other than mild hyperglycemia, normal hepatic panel, normal lipase. Alcohol is negative. CT abdomen and pelvis independently interpreted by me with question of mild cecal colitis versus decompression, no other acute intra-abdominal findings. Time of Reevaluation #2: 20:41 Reevaluation #2: IMPRESSION: 1. Mild diffuse colonic wall thickening, compatible with mild colitis, likely on the basis of an infectious or inflammatory process. 2. Normal appendix. 3. Mild age-indeterminate L2 compression fracture. Recommend correlation with site for focal tenderness. 4. Mild chronic-appearing T8, T11, and T12 compression fractures Time of Reevaluation #3: 20:52 Reevaluation #3: Patient recheck, he does have some tenderness in the L2 region this likely does recommend a acute fractures is complaining quite a bit of back pain. Will be discharged with limited number of oxycodone. Also will be started on Keppra and should follow-up with neurology as soon as possible. Vital Signs Vital signs: Initial Vital Signs Temperature 97.6 F 04/30/25 18:49 Temperature Source Temporal Artery Scan 04/30/25 18:49 Pulse Rate 99 04/30/25 18:49 Respiratory Rate 16 04/30/25 18:49 Blood Pressure 144/74 H 04/30/25 18:49 Blood Pressure Mean 97 04/30/25 18:49 Blood Pressure Position Supine 04/30/25 18:49 Pulse Oximetry 88 04/30/25 18:49 Oxygen Delivery Method Room Air 04/30/25 18:49 Vital Signs Temperature 97.6 F 04/30/25 18:49 Pulse Rate 99 04/30/25 18:49 Respiratory Rate 16 04/30/25 18:49 Blood Pressure 144/74 H 04/30/25 18:49 Pulse Oximetry 88 04/30/25 18:49 Oxygen Delivery Method Room Air 04/30/25 18:49 Temperature 97.6 F 04/30/25 18:49 Pulse Rate 99 08/17/25 18:49 Respiratory Rate 16 04/30/25 18:49 Blood Pressure 144/74 H 04/30/25 18:49 Pulse Oximetry 88 04/30/25 18:49 Oxygen Delivery Method Room Air 04/30/25 18:49 Medications Administered Medications: Discontinued Medications Generic Name Dose Route Start Last Admin Trade Name Freq PRN Reason Stop Dose Admin Sodium Chloride 1,000 mls @ 1,000 mls/hr 04/30/25 19:15 04/30/25 19:20 0.9 % Sodium Chloride 1000 Ml IV 04/30/25 20:14 1,000 mls/hr .Q1H ISABELL Administration MDM - Seizure Lab Data Labs: Lab Results 04/30/25 Range/Units 19:15 WBC 18.08 H (4.50-11.00) K/uL RBC 5.04 (4.30-5.90) m/uL Hgb 15.5 (13.5-17.5) gm/dL Hct 45.4 (37.0-53.0) % MCV 90 (80-100) fL MCH 31 (26-34) pg MCHC 34 (32-36) gm/dL RDW Coeff of Ruy 12.6 (11.5-15.5) % Plt Count 201 (140-440) K/uL Neut % (Auto) 89.7 H (42.0-72.0) % Lymph % (Auto) 5.8 L (20-44) % Mccracken % (Auto) 2.8 (0.0-11.0) % Eos % (Auto) 0.0 (0.0-7.0) % Baso % (Auto) 0.1 (0.0-3.0) % Neut # (Auto) 16.20 H (1.7-7.0) K/uL Lymph # (Auto) 1.00 (0.90-2.90) K/uL Mccracken # (Auto) 0.50 (0.00-0.90) K/UL Eos # (Auto) 0.00 (0.00-0.50) K/uL Baso # (Auto) 0.00 (0.00-0.30) K/uL Abs Immat Gran (auto) 0.30 (0.00-0.30) K/uL Imm/Tot Granulo (auto) 1.6 % Sodium 138 (135-149) mmol/L Potassium 3.7 (3.6-5.1) mmol/L Chloride 105 (96-114) mmol/L Carbon Dioxide 23 (20-32) mmol/L Anion Gap 10 (7-15) mEq/L BUN 11 (5-24) mg/dL Creatinine 0.8 (0.5-1.5) mg/dL Estimated Creat Clear 130.39 Estimated GFR 111 ml/min Glucose 172 H (60-115) mg/dL Calcium 9.3 (8.4-10.6) mg/dL Magnesium 2.7 H (1.5-2.6) mg/dL Total Bilirubin 0.4 (0.1-1.5) mg/dL Direct Bilirubin 0.2 (0.0-0.5) mg/dL AST 37 H (12-35) U/L ALT 29 (4-50) U/L Alkaline Phosphatase 111 (40-150) U/L Total Protein 7.5 (6.0-8.3) g/dL Albumin 4.4 (3.3-5.0) g/dL Lipase 26 (23-300) U/L Ethyl Alcohol < 0.01 (0.01-0.03) % Discharge Plan Discharge Clinical Impression: Generalized seizure, Methadone dependence, Closed compression fracture of L2 vertebra Patient Disposition: Home, Self-Care Condition: Stable Instructions: Vertebral Compression Fracture (ED), Recurrent Seizures in Adults (ED) Additional Instructions: Follow-up with neurology as soon as possible. Also follow-up with your primary care provider regarding your L2 compression fracture. Due to recurrent seizure, do not drive, swim, work at a high, ride bike for 3 months or until you are released by your neurologist Activity Level: Activity as Tolerated Discharge Diet: Regular Prescriptions: New levetiracetam [Keppra] 500 mg tablet 500 mg PO BID Qty: 60 0RF No Action methadone 10 mg tablet 50 mg PO DAILY Follow Up/Referrals: Provider,Not a Local [Primary Care Provider, Family Practice] Stand Alone Forms: [facility] Info Instructions
[2025-04-30 18:49] VITALS: BP 144/74; PULSE 99; RESP 16; TEMP 36.4; O2SAT 88; BMI 29.0
--- NOTE | 2025-04-30 19:02 | CRLHL7_ITS ---
For Patients: As a result of the Century Cures Act, medical imaging exams and procedure reports are released immediately into your electronic medical record. You may view this report before your referring provider. If you have questions, please contact your health care provider. INDICATION: Right lower quadrant pain, vomiting. TECHNIQUE: CT abdomen and pelvis acquired with 100 cc of Isovue 370 IV contrast. COMPARISON: None. FINDINGS: Lower chest: Unremarkable. Liver: Unremarkable. Normal in size and attenuation. No suspicious masses. Gallbladder and bile ducts: Unremarkable. No stones or inflammation. No biliary dilatation. Pancreas: Unremarkable. No mass or inflammation. Spleen: Unremarkable. Normal in size. No masses. Adrenal glands: Unremarkable. No nodules. Kidneys: Unremarkable. No suspicious masses, stones, or hydronephrosis. GI tract: Mild diffuse mural thickening of the colon. No bowel obstruction. Normal appendix. Vasculature: Abdominal aorta is normal in caliber. Mesenteric arteries are patent. Lymph nodes: No lymphadenopathy. Peritoneum/Abdominal Wall: Unremarkable. No free air or significant free fluid. Pelvis: Unremarkable. Bones: Mild chronic T8, T11, and T12 compression fractures. Mild age-indeterminate L2 compression fracture. IMPRESSION: 1. Mild diffuse colonic wall thickening, compatible with mild colitis, likely on the basis of an infectious or inflammatory process. 2. Normal appendix. 3. Mild age-indeterminate L2 compression fracture. Recommend correlation with site for focal tenderness. 4. Mild chronic-appearing T8, T11, and T12 compression fractures. Please note that all CT scans at this facility use dose modulation, iterative reconstruction, and/or weight-based dosing when appropriate to reduce radiation dose to as low as reasonably achievable. Dictated by James Mckeon MD @ 04/30/2025 8:32:59 PM (Electronically Signed)
[2025-04-30 19:20] LABS: Hematocrit 45.4 % (37.0-53.0); Hemoglobin* 15.5 gm/dL (13.5-17.5); Immature Granulocytes Pct Auto 1.6 %; Mean Corpuscular HGB Conc 34 gm/dL (32-36); Mean Corpuscular Hemoglobin 31 pg (26-34); Mean Corpuscular Volume 90 fL (80-100); RDW Coefficient of Variation % 12.6 % (11.5-15.5); Red Blood Count 5.04 m/uL (4.30-5.90); White Blood Count* 18.08 K/uL (4.50-11.00)
[2025-04-30 19:32] LABS: Albumin* 4.4 g/dL (3.3-5.0); Chloride* 105 mmol/L (96-114)
[2025-04-30 19:33] LABS: Potassium* 3.7 mmol/L (3.6-5.1); Sodium* 138 mmol/L (135-149)
--- OUTSIDE RECORDS SUMMARY | 2025-04-30 19:33 | XMS_ITS | Clinical Summary ---
Author Organization [facility] Address [address] , [address] [place] [address] Phone Care Team Providers Care Lottery Manager Name Role Phone Rufus Mckeon MD Oazieugkvuw [phone] Conditions or Problems Problem Name Problem Code Onset Date Status Entry Date Provider Comment Standard Description Annotate Cognitive changes 226932030 (SNOMED CT) 12/19 Active 12/19 Rufus Mckeon MD Impaired cognition MRI, brain, abnormal 736259601 (SNOMED CT) 12/19 Active 12/19 Rufus Mckeon MD Magnetic resonance imaging of brain abnormal Opioid dependence with opioid-induc ed disorder F11.29 (ICD-10-CM ) 06/10 Active 12/19 Rufus Mckeon MD Opioid dependence with unspecified opioid-induced disorder Imported from [facility]: [facility] (19-Dec-2021 at 01:43:48 PM) Lumbar radiculopath y 772183127 (SNOMED CT) 04/28 Active 12/19 Rufus Mckeon MD Lumbar radiculopathy Imported from [facility]: [facility] (19-Dec-2021 at 01:43:48 PM) Injury of knee, leg, ankle and foot S89.90xA (ICD-10-CM ) Active 12/19 Rufus Mckeon MD Unspecified injury of unspecified lower leg, initial encounter Imported from [facility]: [facility] (19-Dec-2021 at 01:43:48 PM) History of heroin use Z87.898 (ICD-10-CM ) 06/04 Active 12/19 Rufus Mckeon MD Personal history of other specified conditions Imported from [facility]: [facility] (19-Dec-2021 at 01:43:48 PM) 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 (ICD-10-CM ) 06/10 Active 12/19 Rufus Mckeon MD Sedative, hypnotic, or anxiolytic use, unspecified, uncomplicated Imported from [facility]: [facility] (19-Dec-2021 at 01:43:48 PM) Seizure 60593914 (SNOMED CT) 11/14 Active 12/19 Rufus Mckeon MD Seizure Imported from [facility]: [facility] (19-Dec-2021 at 01:43:07 PM) H/O drug abuse F19.11 (ICD-10-CM ) 05/30 Active 12/19 Rufus Mckeon MD Other psychoactive substance abuse, in remission Imported from [facility]: [facility] (19-Dec-2021 at 01:43:07 PM) Depression, recurrent 389798113 (SNOMED CT) 11/14 Active 12/19 Rufus Mckeon MD Recurrent depression Imported from [facility]: [facility] (19-Dec-2021 at 01:43:07 PM) Chronic bilateral low back pain M54.50 (ICD-10-CM ) 05/10 Active 12/19 Rufus Mckeon MD Low back pain, unspecified Imported from [facility]: [facility] (19-Dec-2021 at 01:43:07 PM) Benzodiazepi ne dependence 857934656 (SNOMED CT) 05/30 Active 12/19 Rufus Mckeon MD Benzodiazepine dependence Imported from [facility]: [facility] (19-Dec-2021 at 01:43:07 PM) Amnesia 81119342 (SNOMED CT) 11/14 Active 12/19 Rufus Mckeon MD Amnesia Imported from [facility]: [facility] (19-Dec-2021 at 01:43:07 PM) Medications Medication Instructions Start Date Stop Date Generic Name NDC Provider DIVALPROEX SODIUM 500 MG TBEC Take 3 tab q AM and 4 tabs q PM divalproex [id number] Rufus Mckeon MD DIVALPROEX SODIUM 500 MG TBEC Take 3 tab q AM and 4 tabs q PM 6 divalproex [id number] Bernadette Brenner RN DIVALPROEX SODIUM 500 MG TBEC Take 4 tablet by mouth twice a day Take 4 tab q AM and 5 tabs q PM 6 divalproex 09295231992 Bernadette Brenner RN DIVALPROEX SODIUM 500 MG TBEC Take 4 tablet by mouth twice a day 6 divalproex 00272334268 Bernadette Brenner RN DIVALPROEX SODIUM 500 MG TBEC 4 tablet by mouth once a day 6 divalproex 87362280154 Bernadette Brenner RN METHADONE HCL 5 MG/5ML SOLN Take ml by mouth methadone 92176787992 Kimberli Brenner RN ALPRAZOLAM 2 MG TABS 1 tablet by mouth once a day 0 alprazolam 45688017926 Bernadette Brenner RN ALPRAZOLAM 2 MG TABS One po qd 0 alprazolam 78534610304 QIEUSER QIEUSER METHADONE HCL 5 MG/5ML SOLN Take by mouth. methadone 81582524497 QIEUSER QIEUSER DIVALPROEX SODIUM 500 MG TBEC 4 tablets daily 6 divalproex [id number] QIEUSER QIEUSER Medications Administered No information available. Allergies, Adverse Reactions, Alerts Allergy Name Reaction Description Start Date Severity Statu s Provider DIPHENHYDRAMINE Rash Mild Active Segun Mckeon MD DIPHENHYDRAMINE HCL Rash Mild Active Rufus Mckeon MD ACETONE Rash Severe Active Rufus christian MD Results Date Name Value Unit Range Flag Description Office Visit: Office Visit S eizures, amnesia 3 MRIs [facility] 2 fax SMOK STATUS current some day [...] Valproic Acid Total (Depakote) ORDERS EEG 3hr CPT-83593 EEG Setup CPT-53803 Video EEG 2-12hrs () 05/07 CPT-43367 Video EEG 2-12hrs (Nurys) 202 10/22/23 ORDERS Follow up as needed ORDERS TSH ORDERS ANCA ORDERS CBC with Diff/Platelet 03/27 ORDERS ESR (Sedimentation Rate) 202 10/21/13 ORDERS Protein C Panel ORDERS Protein S Panel ORDERS Factor V Leiden Mutation 202 10/21/13 ORDERS Neuropsychology Evaluation 2 CPT-27681 Npsy Interview w/Provider - 1st hour 2021 CPT-83866 Npsy Interp/Rpt by Provider - 1st hour 05/03/23 CPT-34494 Npsy Interp/Rpt by Provider - 2 hours 10/20/22 CPT-85883 Npsy Test by Tech (2+ Tests) - 1st 30 min CPT-34553 Npsy Test by Tech (2+ Tests) - 3 hours 05/03/23 CPT-42253 EEG EXTENDED 41-60mins (END) ORDERS EEG Sleep [...]
[2025-04-30 19:35] LABS: Alanine Aminotransferase* 29 U/L (4-50); Anion Gap 10 mEq/L (7-15); Aspartate Amino Transferase* 37 U/L (12-35); Blood Urea Nitrogen* 11 mg/dL (5-24); Carbon Dioxide* 23 mmol/L (20-32); Creatinine* 0.8 mg/dL (0.5-1.5); Est. Creatinine Clearance* 130.39; Estimated Glomerular Filt Rate 111 ml/min; Total Protein* 7.5 g/dL (6.0-8.3)
[2025-04-30 19:36] LABS: Alkaline Phosphatase* 111 U/L (40-150); Bilirubin Direct* 0.2 mg/dL (0.0-0.5); Bilirubin Total* 0.4 mg/dL (0.1-1.5); Calcium* 9.3 mg/dL (8.4-10.6); Glucose* 172 mg/dL (60-115)
[2025-04-30 19:38] LABS: Ethanol* < 0.01 % (0.01-0.03)
[2025-04-30 19:39] LABS: Immature Granulocytes Abs Auto 0.30 K/uL (0.00-0.30); Lymphocytes Absolute Auto 1.00 K/uL (0.90-2.90); Slide Review Reflex No
== END 2025-04-30 21:22 | disposition home or self-care (01) ==
PROVIDERS: Emergency Provider Family Medicine
DX: G40.409 Other generalized epilepsy and epileptic syndromes, not intractable, without status epilepticus (principal); S32.020A Wedge compression fracture of second lumbar vertebra, initial encounter for closed fracture
CPT/HCPCS: 36415; 74177; 80048; 80076; 80306; 81001; 82077; 83690; 83735; 85025; 96374; 99285; A9270; J1885; J7030; Q9967

== ENCOUNTER 2025-05-01 07:00 | Inpatient (IN) | payer BC, SELFPAY ==
--- OUTSIDE RECORDS SUMMARY | 2015-09-12 19:00 | XMS_ITS | Continuity of Care Document ---
Author Organization BALDEMAR Castelan Address [address] [place] [address] Phone Care Team Providers Care Environmental Services Attendant Name Role Phone Unavailable Unavailable Unavailable [...] Providers Copied on Encounter BALDEMAR Castelan, [address], [place], [place], [address], [place] tel:[phone] [facility] No Information 5 No Information Referring Provider: Donell June MD, [address], [place], [address]. tel:[phone] Offic/outpt E&m Estab Mod-hi 2 Flip, [facility], [address], [place], [place], [address], [place] tel:[phone] [facility] No Information 3 Ynes Cannon. [address], [address], [place], [address], [place]. tel:[phone] Referring Provider: REFERRAL SELF, JODY. Flip [facility], [address], [place], [place], [address], [place] tel:[phone] Erica Castelan [facility] [address]390 No Information 3 Candelario DPT Cricket. [address], [place], [place], [address], [place]. tel:[phone] Referring Provider: REFERRAL SELF[place]. Flip [facility], [address], [place], [place], [address], [place] tel:[phone] Erica Castelan [facility] [address] No Information 3 Candelario DPT Cricket. [address], [place], [place], [address], [place]. tel:[phone] Referring Provider: REFERRAL SELF, JODY. Flip [facility], [address], [place], [place], [address], [place] tel:[phone] Erica Castelan [facility] [address] No Information 3 Candelario DPT Cricket. [address], [place], [place], [address], [place]. tel:[phone] Referring Provider: REFERRAL SELF, JODY. Flip [facility], [address], [place], [place], [address], [place] tel:[phone] [facility] No Information 3 Eden Pierre. [address], [place], [address], [place]. tel:[phone] Referring Provider: REFERRAL SELF[place]. Offic/outpt E&m Estab Mod-hi 2 Flip [facility], [address], [place], [place], [address], [place] tel:[phone] [facility] No Information 3 Schwemm Mya. [address], [address], [place], [place], [address], [place]. tel:[phone] Referring Provider: REFERRAL SELF, [place]. Offic/outpt E&m Estab Mod-hi 2 Flip [facility], [address], [place], [place], [address], [place] tel:[phone] [facility] No Information 3 Schwemm Mya. [address], [address], [place], [place], [address], [place]. tel:[phone] Referring Provider: REFERRAL SELF, JODY. Flip, [facility], [address], [place], [place], [address], [place] tel:[phone] Kelsomartin Castelan [facility] [address] No Information 3 Luann Marjorie. [address], [address], [place], [place], [address], [place]. tel:[phone] Referring Provider: REFERRAL SELF, [place] Offic/outpt E&m New Mod-hi 45 Flip [facility], [address] [address] [facility] [address], [place], [place], [address], [place] tel:[phone] [facility] No Information 3 Luciano Roque. [address], [address], [place], [place], [address], [place]. tel:[phone] Referring Provider: REFERRAL SELF, JODY. Family History [...]
--- OUTSIDE RECORDS SUMMARY | 2021-10-31 11:14 | XMS_ITS | Continuity of Care Document ---
Author Organization [facility] sudarshan Address [address] [place] [phone] Phone Care Team Providers Care Security Incident Response Specialist Name Role Phone Will Ata LEO Unavailable [...] Diagnoses Date Provider Providers Copied on Encounter [facility], [address] [place], [place], [id number] , [place] tel:[phone] [facility] No Information 2 Will Ata. [address] [place], [place], [id number] , [place]. tel:[phone] OFFICE/OUTPAT IENT VISIT, EST [facility], [address] [place], [place], [id number] , [place] tel:[phone] [facility] Erica Back Pain (chief complaint) LumbagoDegeneration of lumbar or lumbosacral intervertebral disc Sep-2 1-201 5 Abad Courtney. [address] [place], [id number] , [place]. tel: [phone] Referring Provider: Ivonne Curiel [address], [place], [address]. tel:[phone] OFFICE/OUTPAT IENT VISIT, EST [facility], [address] [place] [place], [id number] , [place] tel: [phone] [facility] [place] Back Pain (chief complaint) LumbagoDegeneration of lumbar or lumbosacral intervertebral discCurrent use of a medication 5 Abad Courtney. [address] [place], [id number] , [place]. tel: [phone] Referring Provider: Ivonne Curiel [address], [place], [address]. tel:[phone] [facility], [address] [facility] [place], [id number] , [place] tel: [phone] [facility] [place] Current use of a medication 5 Abad Courtney. [address] [facility] [place], [id number] , [place]. tel: [phone] OFFICE CONSULTATION [facility], [address] [facility] [place], [id number] , [place] tel: [phone] [facility] [place] Back Pain (chief complaint) Degeneration of lumbar or lumbosacral intervertebral discLumbago 0 5 Abad Courtney. [address] [place], [id number] , [place]. tel:[phone] Referring Provider: Ivonne Curiel [address], [place], [address]. tel:[phone] Family History Family Member Type Diagnosis Age At Onset No Information Payers Payer name Insurance type Covered libertarian ID Authoriza tipiyush(s) Blue Cross Blue Shield Of [facility] [id number] 00 Social History Type Description Quantity Date Captured Comments Sex Male Smoking Status No Information Chief Complaint And Reason For Visit No Information Reason For Referral Reason For Referral No Information History Of Present Illness Encounter Date Complaint History Of Prese nt Illness Back Pain Severity level i s moderate. Duration: chronic. The problem is worsening. It occurs persistently. Location of pain is middle back, lower back and right posterior knee. Pain is radiated to the left thigh.The patient describes the pain as an ache and sharp. Symptoms are aggravated by daily activities and working. Symptoms are relieved by lying down and rest. Back Pain (comments) Karel is he re today for follow up evaluation relating to his low back pain. He states increased pain in his mid back and reports a previous x-ray showed DDD. Back Pain (comments) Karel is he re [...] to continue with this regimen. Back Pain Severity level i s mild. Duration: chronic. The problem is stable. It occurs occasionally. Location of pain is lower back.The patient describes the pain as an ache and sharp. Symptoms are aggravated by daily activities. Symptoms are relieved by pain meds/drugs and rest. Back Pain Onset: 10 years ago. Severity [...] disc. He had his imaging done at [facility]. He consulted a surgeon at [facility] who did not recommend surgery. He [...]
[2025-05-01] VITALS (7 sets, daily range): BP systolic 106–153; BP diastolic 70–85; PULSE 46–63; RESP 16–22; TEMP 36.1–37.2; O2SAT 92–95; BMI 32.3; BMI 29.7; BMI 29.8
--- OUTSIDE RECORDS SUMMARY | 2025-05-01 07:02 | XMS_ITS | Clinical Summary ---
Author Organization [facility] Address [address] , [address] [place] [address] Phone Care Team Providers Care Chief Ii Dispatcher Name Role Phone Rufus Mckeon MD Wzplwisnyqs [phone] Conditions or Problems Problem Name Problem Code Onset Date Status Entry Date Provider Comment Standard Description Annotate Cognitive changes 930906697 (SNOMED CT) 12/19 Active 12/19 Rufus Mckeon MD Impaired cognition MRI, brain, abnormal 136175442 (SNOMED CT) 12/19 Active 12/19 Rufus Mckeon MD Magnetic resonance imaging of brain abnormal Opioid dependence with opioid-induc ed disorder F11.29 (ICD-10-CM ) 06/10 Active 12/19 Rufus Mckeon MD Opioid dependence with unspecified opioid-induced disorder Imported from [facility]: [facility] (19-Dec-2021 at 01:43:48 PM) Lumbar radiculopath y 123297536 (SNOMED CT) 04/28 Active 12/19 Rufus Mckeon MD Lumbar radiculopathy Imported from [facility]: [facility] (19-Dec-2021 at 01:43:48 PM) Injury of knee, leg, ankle and foot S89.90xA (ICD-10-CM ) Active 12/19 Rufus Mckeon MD Unspecified injury of unspecified lower leg, initial encounter Imported from [facility]: [facility] (19-Dec-2021 at 01:43:48 PM) History of heroin use Z87.898 (ICD-10-CM ) 06/04 Active 12/19 Rufus Mckeon MD Personal history of other specified conditions Imported from [facility]: [facility] (19-Dec-2021 at 01:43:48 PM) 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 (19-Dec-2021 at 01:43:48 PM) Seizure 28456577 (SNOMED CT) 11/14 Active 12/19 Rufus Mckeon MD Seizure Imported from [facility]: [facility] (19-Dec-2021 at 01:43:07 PM) H/O drug abuse F19.11 (ICD-10-CM ) 05/30 Active 12/19 Rufus Mckeon MD Other psychoactive substance abuse, in remission Imported from [facility]: [facility] (19-Dec-2021 at 01:43:07 PM) Depression, recurrent 069227625 (SNOMED CT) 11/14 Active 12/19 Rufus Mckeon MD Recurrent depression Imported from [facility]: [facility] (19-Dec-2021 at 01:43:07 PM) Chronic bilateral low back pain M54.50 (ICD-10-CM ) 05/10 Active 12/19 Rufus Mckeon MD Low back pain, unspecified Imported from [facility]: [facility] (19-Dec-2021 at 01:43:07 PM) Benzodiazepi ne dependence 862040219 (SNOMED CT) 05/30 Active 12/19 Rufus Mckeon MD Benzodiazepine dependence Imported from [facility]: [facility] (19-Dec-2021 at 01:43:07 PM) Amnesia 53445085 (SNOMED CT) 11/14 Active 12/19 Rufus Mckeon MD Amnesia Imported from [facility]: [facility] (19-Dec-2021 at 01:43:07 PM) Medications Medication Instructions Start Date Stop Date Generic Name NDC Provider DIVALPROEX SODIUM 500 MG TBEC Take 3 tab q AM and 4 tabs q PM divalproex [id number] Rufus Mckeon MD DIVALPROEX SODIUM 500 MG TBEC Take 3 tab q AM and 4 tabs q PM 6 divalproex 28558990304 Bernadette Brenner RN DIVALPROEX SODIUM 500 MG TBEC Take 4 tablet by mouth twice a day Take 4 tab q AM and 5 tabs q PM 6 divalproex 98022725792 Bernadette Brenner RN DIVALPROEX SODIUM 500 MG TBEC Take 4 tablet by mouth twice a day 6 divalproex 81708651150 Bernadette Brenner RN DIVALPROEX SODIUM 500 MG TBEC 4 tablet by mouth once a day 6 divalproex 41556577890 Bernadette Brenner RN METHADONE HCL 5 MG/5ML SOLN Take ml by mouth methadone 19457165752 Kimberli Brenner RN ALPRAZOLAM 2 MG TABS 1 tablet by mouth once a day 0 alprazolam 82141163081 Bernadette Brenner RN ALPRAZOLAM 2 MG TABS One po qd 0 alprazolam 18164137605 QIEUSER QIEUSER METHADONE HCL 5 MG/5ML SOLN Take by mouth. methadone 38375493605 QIEUSER QIEUSER DIVALPROEX SODIUM 500 MG TBEC 4 tablets daily 6 divalproex 56992288741 QIEUSER QIEUSER Medications Administered No information available. Allergies, Adverse Reactions, Alerts Allergy Name Reaction Description Start Date Severity Statu s Provider DIPHENHYDRAMINE Rash Mild Active Segun Mckeon MD DIPHENHYDRAMINE HCL Rash Mild Active Rufus Mckeon MD ACETONE Rash Severe Active Rufus christian MD Results Date Name Value Unit Range Flag Description Office Visit: Office Visit S eizures, amnesia 3 MRIs [facility] 2 fax SMOK STATUS current some [...] Valproic Acid Total (Depakote) ORDERS EEG 3hr CPT-72883 EEG Setup CPT-13427 Video EEG 2-12hrs () 05/07 CPT-37409 Video EEG 2-12hrs (Nurys) 202 10/22/23 ORDERS Follow up as needed ORDERS TSH ORDERS ANCA ORDERS CBC with Diff/Platelet 03/27 ORDERS ESR (Sedimentation Rate) 202 10/21/13 ORDERS Protein C Panel ORDERS Protein S Panel ORDERS Factor V Leiden Mutation 202 10/21/13 ORDERS Neuropsychology Evaluation 2 CPT-59191 Npsy Interview w/Provider - 1st hour 2021 CPT-04647 Npsy Interp/Rpt by Provider - 1st hour 05/03/23 CPT-24797 Npsy Interp/Rpt by Provider - 2 hours 10/20/22 CPT-20537 Npsy Test by Tech (2+ Tests) - 1st 30 min CPT-65188 Npsy Test by Tech (2+ Tests) - 3 hours 05/03/23 CPT-87876 EEG EXTENDED 41-60mins (END) ORDERS EEG Sleep [...]
[2025-05-01] MEDS: ONDANSETRON 2 MG/ML inj 4 MG IVP ×2 (07:30→16:36)
[2025-05-01 07:50] LABS: Hematocrit 41.7 % (37.0-53.0); Hemoglobin* 14.3 gm/dL (13.5-17.5); Immature Granulocytes Pct Auto 0.3 %; Mean Corpuscular HGB Conc 34 gm/dL (32-36); Mean Corpuscular Hemoglobin 31 pg (26-34); Mean Corpuscular Volume 90 fL (80-100); RDW Coefficient of Variation % 12.8 % (11.5-15.5); Red Blood Count 4.65 m/uL (4.30-5.90); White Blood Count* 22.53 K/uL (4.50-11.00)
[2025-05-01 07:51] LABS: Immature Granulocytes Abs Auto 0.10 K/uL (0.00-0.30); Lymphocytes Absolute Auto 1.70 K/uL (0.90-2.90); Slide Review Reflex No
--- NOTE | 2025-05-01 07:54 | ED_ITS ---
HPI - General Adult General Chief complaint: Back Injury/Pain Stated complaint: back ache Time Seen by Provider: 05/01/25 07:40 History of Present Illness HPI narrative: Patient presents to the emergency department complaining of back pain. Patient was in the ER yesterday and was told he had an L2 fracture . Patient has been vomiting and unable to keep the pain medication down 44-year-old man returning to the emergency department with complaint of low back pain. History of TBI, anxiety and seizure disorder. Does have a history of chronic pain and is maintained on methadone. Tried taking his methadone this morning and vomited it up. Also vomited up prescribed pain pills from the emergency department. Is not really having significant abdominal pain. Was pacing prior to me seeing him hand at his back, in and out of the room. And is writhing about on the bed complaining of pain. Significant other reports that has been vomiting blood since leaving the emergency department. No fevers reported. Last night, nearly 12 hours ago, was diagnosed with a ?mild age-indeterminate L2 compression fracture? along with chronic lower thoracic compression fractures. Was also diagnosed with mild diffuse colitis. Apparently yesterday after vomiting for most of the day had walked to the bathroom and fell to the floor, as significant other describes it today, striking his back on the corner of the wall on the way. He had a generalized tonic clonic seizure. Had not been treating his seizures. Was dispensed 4 tabs of [place] and Zofran when seen yesterday. Zofran was ineffective. They seem unaware of prior compression fractures Related Data Home Medications ?Medication ?Instructions ?Recorded ?Confirmed methadone 10 mg tablet 50 mg PO DAILY 03/27/2503/14 Previous Rx's ?Medication ?Instructions ?Recorded levetiracetam 500 mg tablet 500 mg PO BID #60 tabs (Keppra) Allergies Allergy/AdvReac Type Severity Reaction Status Date / Time diphenhydramine (From Allergy Mild Hives Verified 04/30/25 19:27 Benadryl) Review of Systems Status of ROS: Reports: 6 or more systems reviewed and unremarkable except as noted in History and below [facility] Medical History H/O drug abuse ?F19.11 - Other psychoactive substance abuse, in remission (ICD-10) AURORA (generalized anxiety disorder) ?F41.1 - Generalized anxiety disorder (ICD-10) Depression, recurrent ?F33.9 - Major depressive disorder, recurrent, unspecified (ICD-10) Thrombocytopenia ?D69.6 - Thrombocytopenia, unspecified (ICD-10) TBI (traumatic brain injury) ?S06.9XAA - Unspecified intracranial injury with loss of consciousness status unknown, initial encounter (ICD-10) Seizures ?R56.9 - Unspecified convulsions (ICD-10) Intussusception ?K56.1 - Intussusception (ICD-10) Back pain ?M54.9 - Dorsalgia, unspecified (ICD-10) Anxiety disorder ?F41.9 - Anxiety disorder, unspecified (ICD-10) Surgical History History of wisdom tooth extraction ?K08.409 - Partial loss of teeth, unspecified cause, unspecified class (ICD- 10) Social History Smoking Status: Former smoker Do you use any of these nicotine containing products: Vaping Products Second hand tobacco smoke exposure: No How often do you have a drink containing alcohol: never AUDIT-C Alcohol total score: 0 Non-prescribed substance use: other Non-prescribed substance use details: methadone service: No Exam Narrative: Exam Narrative: As noted been ambulating outside the room. Redirected. I find Karel curled up on his knees in his bed complaining of pain. There is some spit in an emesis ba g nearby. He is restless. Is able to cooperate with exam. Abdomen is soft and nontender. Oropharynx is moist without evidence of blood. Lungs are clear. Pulse in regular rate and rhythm. Is moving all extremities without difficulty. Examination of his back though shows large bruise and some erythema at the right hip area. He is hypesthetic on the exam but sore to palpation certainly in this area. Primary area of pain appears to be the right low back flank area not inconsistent with compression fracture location. Const: Vital Signs, click to edit/add: Vital Signs - 24 hr 05/01/25 07:06 Pulse Rate [Right Pulse Oximeter] 63 Respiratory Rate 22 Blood Pressure [Ri ght Upper Arm] 149/85 H Pulse Oximetry 95 Oxygen Delivery Me thod Room Air Documenting provider has reviewed patient's vital signs: yes Course Vital Signs Vital signs: Initial Vital Signs Pulse Rate 63 05/01/25 07:06 Pulse Rhythm Regular 05/01/25 07:06 Pulse Strength 0+ Absent 05/01/25 07:06 Respiratory Rate 22 05/01/25 07:06 Blood Pressure 149/85 H 05/01/25 07:06 Blood Pressure Mean 106 H 05/01/25 07:06 Pulse Oximetry 95 05/01/25 07:06 Oxygen Delivery Method Room Air 05/01/25 07:06 Vital Signs Pulse Rate 63 05/01/25 07:06 Respiratory Rate 22 05/01/25 07:06 Blood Pressure 149/85 H 05/01/25 07:06 Pulse Oximetry 95 05/01/25 07:06 Oxygen Delivery Method Room Air 05/01/25 07:06 Pulse Rate 63 05/01/25 07:06 Respiratory Rate 22 05/01/25 07:06 Blood Pressure 149/85 H 05/01/25 07:06 Pulse Oximetry 95 05/01/25 07:06 Oxygen Delivery Method Room Air 05/01/25 07:06 Medications Administered Medications: Discontinued Medications Generic Name Dose Route Start Last Admin Trade Name Freq PRN Reason Stop Dose Admin Hydromorphone HCl 1 mg 05/01/25 08:09 05/01/25 08:20 Hydromorphone 0.5 Mg/0.5 Ml Inj IVP 05/01/25 08:10 1 mg ONCE ONE Administration Sodium Chloride 1,000 mls @ 1,000 mls/hr 05/01/25 07:21 05/01/25 09:20 0.9 % Sodium Chloride 1000 Ml IV 05/01/25 08:20 Infused .Q1H ONE Infusion Levetiracetam/Sodium Chloride 1,000 mg 05/01/25 08:09 05/01/25 09:14 Levetiracetam 1,000 Mg/100 Ml Infusion IVPB 05/01/25 08:10 1,000 mg ONCE ONE Administration Lorazepam 0.5 mg 05/01/25 08:11 05/01/25 08:20 Lorazepam 2 Mg/Ml Inj IVP 05/01/25 08:12 0.5 mg ONCE ONE Administration Ondansetron HCl 4 mg 05/01/25 07:24 05/01/25 07:30 Ondansetron 2 Mg/Ml Inj IVP 05/01/25 07:25 4 mg ONCE ONE Administration Medical Decision Making MDM Narrative Medical decision making narrative: Vomiting may also be related to some degree of opiate withdrawal. Does have CT evidence of colitis but has not been describing diarrhea. He notes a high pain tolerance. I discuss differing perceptions of pain but also acknowledge real injury with suspected to be new L2 compression fracture. Initially requested placement of IV and normal saline. Labs were also collected. I am reassured by belly exam. Would focus on management of vomiting and pain control. I did treat what I perceive is exacerbation of anxiety as well with Ativan. Did give IV Dilaudid and Zofran and Keppra Labs return with an increased white count now to 22,000. Potassium of 2.9 and decreasing magnesium now to 2. Testing gastric occult though if this is positive likely related to Veronique- Hedrick tears -- evidence in emesis bag does not suggest significant GI bleed. Radiology over-read of CT from yesterday INDICATION: Right lower quadrant pain, vomiting. TECHNIQUE: CT abdomen and pelvis acquired with 100 cc of Isovue 370 IV contrast. COMPARISON: None. FINDINGS: Lower chest: Unremarkable. Liver: Unremarkable. Normal in size and attenuation. No suspicious masses. Gallbladder and bile ducts: Unremarkable. No stones or inflammation. No biliary dilatation. Pancreas: Unremarkable. No mass or inflammation. Spleen: Unremarkable. Normal in size. No masses. Adrenal glands: Unremarkable. No nodules. Kidneys: Unremarkable. No suspicious masses, stones, or hydronephrosis. GI tract: Mild diffuse mural thickening of the colon. No bowel obstruction. Normal appendix. Vasculature: Abdominal aorta is normal in caliber. Mesenteric arteries are patent. Lymph nodes: No lymphadenopathy. Peritoneum/Abdominal Wall: Unremarkable. No free air or significant free fluid. Pelvis: Unremarkable. Bones: Mild chronic T8, T11, and T12 compression fractures. Mild age-indeterminate L2 compression fracture. IMPRESSION: 1. Mild diffuse colonic wall thickening, compatible with mild colitis, likely on the basis of an infectious or inflammatory process. 2. Normal appendix. 3. Mild age-indeterminate L2 compression fracture. Recommend correlation with site for focal tenderness. 4. Mild chronic-appearing T8, T11, and T12 compression fractures. Please note that all CT scans at this facility use dose modulation, iterative reconstruction, and/or weight-based dosing when appropriate to reduce radiation dose to as low as reasonably achievable. Dictated by James Mckeon MD @ 04/30/2025 8:32:59 PM Gastroccult is negative Sepsis is in differential but I think less likely. Requesting lactate. Anticipating alternate pain management. Have discussed with oncoming provider. Checking EKG with potential combination of Zofran, droperidol and lingering methadone. Possible use of ketamine. Gets weekly prescriptions of methadone and would be receiving more methadone tomorrow. Will likely need stop gap opiate in the meantime Medical Records Medical records reviewed: Yes I reviewed the patient's medical records Lab Data Lab results reviewed: Yes I reviewed the patient's lab results Labs: Lab Results 05/01/25 05/01/25 Range/Units 07:40 08:26 WBC 22.53 H (4.50-11.00) K/uL RBC 4.65 (4.30-5.90) m/uL Hgb 14.3 (13.5-17.5) gm/dL Hct 41.7 (37.0-53.0) % MCV 90 (80-100) fL MCH 31 (26-34) pg MCHC 34 (32-36) gm/dL RDW Coeff of Ruy 12.8 (11.5-15.5) % Plt Count 197 (140-440) K/uL Neut % (Auto) 88.4 H (42.0-72.0) % Lymph % (Auto) 7.5 L (20-44) % Noble % (Auto) 3.8 (0.0-11.0) % Eos % (Auto) 0.0 (0.0-7.0) % Baso % (Auto) 0.0 (0.0-3.0) % Neut # (Auto) 19.90 H (1.7-7.0) K/uL Lymph # (Auto) 1.70 (0.90-2.90) K/uL Noble # (Auto) 0.90 (0.00-0.90) K/UL Eos # (Auto) 0.00 (0.00-0.50) K/uL Baso # (Auto) 0.00 (0.00-0.30) K/uL Abs Immat Gran (auto) 0.10 (0.00-0.30) K/uL Imm/Tot Granulo (auto) 0.3 % Sodium 136 (135-149) mmol/L Potassium 2.9 L* (3.6-5.1) mmol/L Chloride 103 (96-114) mmol/L Carbon Dioxide 23 (20-32) mmol/L Anion Gap 10 (7-15) mEq/L BUN 14 (5-24) mg/dL Creatinine 0.8 (0.5-1.5) mg/dL Estimated Creat Clear 130.39 Estimated GFR 111 ml/min Glucose 156 H (60-115) mg/dL Calcium 9.1 (8.4-10.6) mg/dL Magnesium 2.0 (1.5-2.6) mg/dL C-Reactive Protein 1.9 H (0.5-1.0) mg/dL Gastric Fluid pH 2.0 Gastric Occult Blood Negative (Negative) Lab Acknowledgement Test Added Discharge Plan Discharge Clinical Impression: Vomiting, Dehydration, Compression fracture, Chronic pain Prescriptions: No Action methadone 10 mg tablet 50 mg PO DAILY levetiracetam [Keppra] 500 mg tablet 500 mg PO BID Qty: 60 0RF Follow Up/Referrals: Provider,Not a Local [Primary Care Provider, Family Practice]
[2025-05-01 08:20] LABS: Chloride* 103 mmol/L (96-114); Sodium* 136 mmol/L (135-149)
[2025-05-01 08:23] LABS: Blood Urea Nitrogen* 14 mg/dL (5-24); Creatinine* 0.8 mg/dL (0.5-1.5); Est. Creatinine Clearance* 130.39; Estimated Glomerular Filt Rate 111 ml/min
[2025-05-01 08:24] LABS: Anion Gap 10 mEq/L (7-15); Calcium* 9.1 mg/dL (8.4-10.6); Carbon Dioxide* 23 mmol/L (20-32); Glucose* 156 mg/dL (60-115)
[2025-05-01 08:30] LABS: Potassium* 2.9 mmol/L (3.6-5.1)
[2025-05-01] MEDS: LEVETIRACETAM 1,000 mg/100 ml INFUSION 1000 MG IVPB (09:14)
[2025-05-01 09:22] LABS: Gastric Occult Blood* Negative (Negative); pH Gastric Fluid* 2.0
[2025-05-01] MEDS: LACTATED RINGERS 1000 ML 1,000 ML IV (09:48)
[2025-05-01] MEDS: diazePAM 5 MG/ML inj IV ×2 (10:08→11:16)
[2025-05-01] MEDS: MAGNESIUM IV 2 GM/50 ML PIGGYBACK IVPB (10:24)
[2025-05-01] MEDS: POTASSIUM CHLORIDE 10 MEQ/100 ML PIGGYBACK 100 MEQ IVPB ×3 (10:24→15:18)
[2025-05-01 10:51] LABS: Lactate* 3.3 mmol/L (0.5-1.9)
--- NOTE | 2025-05-01 11:17 | P.IMHP_ITS ---
Assessment and Plan Assessment and plan (1) Hypokalemia: Problem comment: - likely 2/2 vomiting, replacing IV and oral, follow Status: Acute (2) Compression fracture: Problem comment: - L2, noted on 04/30 imaging - acuity unclear, possibly related to seizure/fall on 04/30, also has chronic appearing compression fractures of T8, T11, T12 - no red flag symptoms - pain management: Lidocaine patch, scheduled APAP, Calcitonin nasal spray, prn Tizanidine, home Methadone Status: Acute (3) Vomiting: Problem comment: - mild colitis on 04/30/25 CT Status: Acute (4) Chronic pain: Problem comment: - Methadone Rx per [facility] in [place] ([phone]), on 50mg/day. Last dose at home taken 05/01 (confirmed with clinic by phone) - patient takes 50mg/day, vomiting dose on 05/01 in the morning. Per clinic, should receive 80% of home dose if vomits; will given 40mg 05/01 and restart 50mg 05/02 - close f/u with clinic upon discharge Status: Acute (5) Dehydration: Problem comment: - 2/2 vomiting, treat with IV fluids and slow advancement of diet Status: Acute (6) Colitis: Problem comment: - noted on 04/30 imaging - per chart review, colitis of sigmoid colon (incidentally noted) on 2021 CT - recommend outpatient f/u and colonoscopy (has never had) Status: Acute (7) TBI (traumatic brain injury): Problem comment: - after seizure 2021 with acute respiratory failure, required short course of intubation Status: Acute (8) Tobacco use: Problem comment: - 1ppd, would like patch while in the hospital Status: Acute (9) Leukocytosis: Problem comment: - presumably 2/2 colitis/vomiting, no need for antibiotics this time but will follow closely Status: Acute (10) Generalized seizure: Problem comment: - seizure disorder, on Keppra - has had seizures as recently as 04/30 (2/2 vomiting up medication) - continue Keppra, seizure precautions Status: Acute Plan - per above regarding pain management, potassium replacement plan - Full Code - updated bedside, questions answered Hospitalist- H&P: HPI History of Present Illness Date Seen: 05/01/25 Chief complaint: back ache Narrative: Karel Zambrano is a 44 year old male with a history of seizure disorder, TBI, h/o previous opiate abuse currently maintained on Methadone, who presented to the ER for worsening back pain. He was seen in the ER yesterday after having a seizure at home, fell against a wall (per partner, who witnessed this). Prior to the seizure, he'd been having nausea/vomiting and hadn't been able to keep down his Keppra. During ER visit yesterday, CT of abdomen and pelvis obtained 2/2 vomiting with the below findings. IMPRESSION: 1. Mild diffuse colonic wall thickening, compatible with mild colitis, likely on the basis of an infectious or inflammatory process. 2. Normal appendix. 3. Mild age-indeterminate L2 compression fracture. Recommend correlation with site for focal tenderness. 4. Mild chronic-appearing T8, T11, and T12 compression fractures. Sent home with short course of Oxycodone for back pain, but pain persisted/worsened and he continues to have intermittent vomiting (couldn't keep down pain meds or Methadone today), so re-presented to ER today. ER Course and Findings: - WBC of 22 with PMN predominance (was 18 on 04/30) - K of 2.9; couldn't tolerate oral replacement, given IV x1. Repeat normalized, but repeat sample mildly hemolyzed so unlikely accurate - Lactate 3.3 - BP mildly decreased from baseline but not hypotensive, pulse 50-60s, afebrile, stable on RA - received Zofran, IV Keppra, IVFs, IV Hydromorphone, IV Valium - unable to manage movement or tolerate repeat lab draw 2/2 back pain Patient being admitted for colitis with leukocytosis, vomiting with resultant hypokalemia, intractable back pain. bedside for H&P. Review of Systems Narrative: - no loss of bladder function - no radiculopathy - no abdominal pain - no diarrhea, actually hasn't had a BM for days Medical Decision Making Medical Decision Making Code Status: Full Code During This Stay, Who Would You Like To Make Decisions For You In The Event You Are Unable To Make Them For Yourself?: Brother Tommy Relevant situational information: Mother Ananya would be alternative MDM (she lives in [place]) [facility] Medical History (Updated 05/01/25 @ 12:23 by Niurka Winchester MD) Tobacco use ?Z72.0 - Tobacco use (ICD-10) H/O drug abuse ?F19.11 - Other psychoactive substance abuse, in remission (ICD-10) AURORA (generalized anxiety disorder) ?F41.1 - Generalized anxiety disorder (ICD-10) Depression, recurrent ?F33.9 - Major depressive disorder, recurrent, unspecified (ICD-10) Thrombocytopenia ?D69.6 - Thrombocytopenia, unspecified (ICD-10) TBI (traumatic brain injury) ?S06.9XAA - Unspecified intracranial injury with loss of consciousness status unknown, initial encounter (ICD-10) Seizures ?R56.9 - Unspecified convulsions (ICD-10) Intussusception ?K56.1 - Intussusception (ICD-10) Back pain ?M54.9 - Dorsalgia, unspecified (ICD-10) Anxiety disorder ?F41.9 - Anxiety disorder, unspecified (ICD-10) Surgical History History of wisdom tooth extraction ?K08.409 - Partial loss of teeth, unspecified cause, unspecified class (ICD- 10) Social History (Updated 05/01/25 @ 12:18 by Niurka Winchester MD) Narrative: Lives with in [place]. Brother Tommy would be primary decision maker if needed. 1ppd smoker, no ETOH use. History of drug abuse, currently on Methadone maintenance through [facility] in [place]. Full Code. Smoking Status: Former smoker Do you use any of these nicotine containing products: Vaping Products Second hand tobacco smoke exposure: No How often do you have a drink containing alcohol: never AUDIT-C Alcohol total score: 0 Non-prescribed substance use: other Non-prescribed substance use details: methadone service: No Meds Home Medications and Allergies Home Medications ?Medication ?Instructions ?Recorded ?Confirmed ?Type methadone 10 mg tablet 50 mg PO DAILY 03/27/2504/14 History levetiracetam 500 mg tablet 500 mg PO BID #60 tabs 05/01/25 Rx (Keppra) Allergies Allergy/AdvReac Type Severity Reaction Status Date / Time diphenhydramine (From Allergy Mild Hives Verified 04/30/25 19:27 Benadryl) Exam Narrative: Exam Narrative: GEN: Awake and clearly uncomfortable, writhing in bed in multiple positions, intermittently answering questions CV: RRR, No concerning murmurs R: LCTA bilaterally without concerning wheezing Back: Bruising over L flank. Points to entire low back and bilateral flanks when asked about area of worst pain Ext: wwp, no concerning edema Skin: No other concerning skin lesions Neuro: No focal deficits, unwilling to sit up for DTR exam/evaluation Psych: Appears uncomfortable, redirectable Const: Vital Signs, click to edit/add: Vital Signs - 24 hr 05/01/25 07:06 05/01/25 09:49 Pulse Rate [Right Pulse Oximeter] 63 52 L Respiratory Rate 22 18 Blood Pressure [Ri ght Upper Arm] 149/85 H 113/77 Pulse Oximetry 95 92 Oxygen Delivery Me thod Room Air Room Air Hospitalist - H&P: Result Labs Labs: Short CBC 05/01/25 Range/Units 07:40 WBC 22.53 H (4.50-11.00) K/uL Hgb 14.3 (13.5-17.5) gm/dL Hct 41.7 (37.0-53.0) % Plt Count 197 (140-440) K/uL BMP 05/01/25 07:40 Sodium 136 Potassium 2.9 L* Chloride 103 Carbon Dioxide 23 BUN 14 Creatinine 0.8 Glucose 156 H Calcium 9.1
[2025-05-01 11:31] LABS: HCO3 VBG 23 mmol/L (21-28); PCO2 VBG 32 mmHG (40-50); PO2 VBG 44.8 mmHG (25-47); pH VBG 7.464 (7.32-7.43)
[2025-05-01 11:33] LABS: Potassium* 4.6 mmol/L (3.6-5.1)
[2025-05-01] MEDS: LIDOCAINE 5% PATCH 1 PATCH TRANSDERMA (12:12)
[2025-05-01] MEDS: ACETAMINOPHEN 650 MG TABLET ER 1300 MG PO ×2 (12:16→20:03)
[2025-05-01] MEDS: METOCLOPRAMIDE HCL 5 MG/ML INJ 10 MG IVP (12:17)
[2025-05-01] MEDS: METHADONE 10 MG TABLET 40 MG PO (12:41)
[2025-05-01] MEDS: LACTATED RINGERS 1000 ML 1,000 ML 125 ML IV (13:26)
[2025-05-01 15:33] LABS: Lactate* 2.5 mmol/L (0.5-1.9)
[2025-05-01 15:42] LABS: Cannabinoid Screen Urine POSITIVE (Negative); Methamphetamines Screen Urine Negative (Negative); Tricyclic Antidepressant Urine Negative (Negative)
[2025-05-01 15:52] LABS: Chloride* 108 mmol/L (96-114); Potassium* 3.7 mmol/L (3.6-5.1); Sodium* 135 mmol/L (135-149)
[2025-05-01 15:55] LABS: Anion Gap 4 mEq/L (7-15); Blood Urea Nitrogen* 15 mg/dL (5-24); Carbon Dioxide* 23 mmol/L (20-32); Creatinine* 0.7 mg/dL (0.5-1.5); Est. Creatinine Clearance* 149.02; Estimated Glomerular Filt Rate 115 ml/min
[2025-05-01 15:56] LABS: Calcium* 8.6 mg/dL (8.4-10.6); Glucose* 116 mg/dL (60-115)
[2025-05-01] MEDS: MENTHOL 57 GM GEL 1 APPLIC TOPICAL (16:35)
[2025-05-01] MEDS: SENNOSIDES/DOCUSATE TABLET 1 TAB PO (16:35)
--- NOTE | 2025-05-01 16:45 | PC.NURSE ---
report provided to this RN patient argumentative and stood up in what was reported a threatening manner. I met with he patient to give expectation and code of conduct. Patient answered question for what type of soda he wanted and when I started to discuss expectation patient started to snore loudly, expectations explained. These expectations were reinforced the next time the patient was awake and moving. Will continue to round on patient as needed. Patient becoming more alert and responsive to cares.
[2025-05-01] MEDS: LACTATED RINGERS 500 ML 500 ML IV (16:50)
[2025-05-01] MEDS: TIZANIDINE HCL 4 MG TABLET PO (17:30)
[2025-05-01 18:55] LABS: Lactate* 2.7 mmol/L (0.5-1.9)
--- NOTE | 2025-05-01 19:54 | W.PM.CROSSCO ---
Subjective Subjective Time Seen by Provider: 19:25 Date Seen: 05/01/25 Interval history: The patient's nurse asked me to see him because he is currently restless, twisting and turning around in the bed and around the room. He was sleeping soundly just about an hour ago. He has been intermittently sleeping then restless in between. When I walk in he is standing, but restless. He immediately moves to the bed, pulls the covers over him and twists around moving the covers around; he is in constant motion. He tells me he is in pain in his upper abdomen and all along his spine and both flanks. He says he had a bowel movement this morning and that he has 1 every day. His fiancee, Yanique, is in the room with him. She says that he started vomiting yesterday morning and a threw up his dose of methadone. This morning he also threw up his dose of methadone right after taking it, so he was given 80% of his dose and was able to keep that down. He has been vomiting frequently and his nurse notes that there was a small streak of blood in his phlegm just a bit ago. Yanique tells me that he had a seizure at home yesterday and wants a referral to a neurologist to see as an outpatient. He has not had any fever. Outside the room his fiancee tells me that he does not drink any alcohol. I have reviewed the abdomen and pelvis CT he had yesterday. Objective Objective Data Details: T 97, BP 106/70, P 54, RR 18, O2sats 94% on RA. General: Restless, appears uncomfortable. Awake, sleepy, oriented. Answers questions appropriately. Following directions. No slurred speech. No pallor. No jaundice. HEENT: Oropharynx: Clear. Mucous membranes slightly dry. Cardiovascular: Bradycardic, regular. No murmurs, gallops, or rubs. Respiratory: Clear to auscultation bilaterally. No wheezes or crackles. Abdomen: Bowel sounds present. Soft, obese, tender in the epigastrium, no rebound tenderness or guarding. No hepatosplenomegaly or masses. Back: No obvious deformity, ecchymosis over left flank. Nontender to palpation, he says it actually feels a little better when I am touching his back, like a massage. Assessment and Plan Assessment and plan (1) Leukocytosis: Problem comment: - presumably 2/2 colitis/vomiting, no need for antibiotics this time but will follow closely Status: Acute (2) Tobacco use: Problem comment: - 1ppd, would like patch while in the hospital Status: Acute (3) TBI (traumatic brain injury): Problem comment: - after seizure 2021 with acute respiratory failure, required short course of intubation Status: Acute (4) Colitis: Problem comment: - noted on 04/30 imaging - per chart review, colitis of sigmoid colon (incidentally noted) on 2021 CT - recommend outpatient f/u and colonoscopy (has never had) Status: Acute (5) Hypokalemia: Problem comment: - likely 2/2 vomiting, replacing IV and oral, follow Status: Acute (6) Chronic pain: Problem comment: - Methadone Rx per [facility] in [place] ([phone]), on 50mg/day. Last dose at home taken 05/01 (confirmed with clinic by phone) - patient takes 50mg/day, vomiting dose on 05/01 in the morning. Per clinic, should receive 80% of home dose if vomits; will given 40mg 05/01 and restart 50mg 05/02 - close f/u with clinic upon discharge Status: Acute (7) Compression fracture: Problem comment: - L2, noted on 04/30 imaging - acuity unclear, possibly related to seizure/fall on 04/30, also has chronic appearing compression fractures of T8, T11, T12 - no red flag symptoms - pain management: Lidocaine patch, scheduled APAP, Calcitonin nasal spray, prn Tizanidine, home Methadone Status: Acute (8) Dehydration: Problem comment: - 2/2 vomiting, treat with IV fluids and slow advancement of diet Status: Acute (9) Vomiting: Problem comment: - mild colitis on 04/30/25 CT Status: Acute (10) Methadone dependence: Status: Acute (11) Generalized seizure: Problem comment: - seizure disorder, on Keppra - has had seizures as recently as 04/30 (2/2 vomiting up medication) - continue Keppra, seizure precautions Status: Acute Plan 44y/o male with seizure yesterday, intractable vomiting, restlessness, abdominal and back pain. Hypokalemia likely from vomiting has resolved with replacement today. I have reviewed labs and abd/pelvic CT. Lactate is elevated despite several fluid boluses, he has not been febrile; I do not think he is septic; I think this is dehydration. Continue IVF @ 125cc/h. Add on lipase and obtain head CT without contrast. I think this is likely methadone withdrawal combined with pain from recent L2 fracture, but I would like to r/o intracranial pathology as cause for restlessness, vomiting and seizure. Continue cares as outlined in the plan from Dr. Winchester earlier today. I have also added prn toradol for pain.
--- NOTE | 2025-05-01 20:15 | CRLHL7_ITS ---
For Patients: As a result of the Century Cures Act, medical imaging exams and procedure reports are released immediately into your electronic medical record. You may view this report before your referring provider. If you have questions, please contact your health care provider. INDICATION: SEIZURE YESTERDAY, VOMITING, RESTLESSNESS, TBI, HISTORY OF SEIZURES. TECHNIQUE: CT head without contrast. COMPARISON: None. FINDINGS: CSF spaces: Within normal limits for age. Brain parenchyma and extra-axial spaces: The mckenzie-white differentiation is normal. No sign of mass, hemorrhage, or midline shift. No extra-axial fluid collection. Skull base and calvarium: The visualized paranasal sinuses and mastoid air cells demonstrate no acute or significant findings. The visualized orbits are grossly unremarkable. No skull fractures. IMPRESSION: No acute intracranial process identified. Please note that all CT scans at this facility use dose modulation, iterative reconstruction, and/or weight-based dosing when appropriate to reduce radiation dose to as low as reasonably achievable. Dictated by Greta Baxter MD @ 05/01/2025 9:22:05 PM (Electronically Signed)
[2025-05-01] MEDS: CALCITONIN SALMON NASAL SPRAY 200 UNIT 1 SPRAY NOSTRIL-B (21:24)
[2025-05-01] MEDS: SODIUM CHLORIDE 0.9 % (FLUSH) 10 ML SYRINGE 5 ML IVF (21:27)
--- NOTE | 2025-05-01 22:47 | PC.NURSE ---
End of Shift: Patient alert to self and year. Afebrile. C/o pain in abdomen and back up to 7/10. PRN Toradol and Tizanidine given. States he feels constipated. Senna and Miralax given. No BM, patient is passing flatus. Patient up and down in bed and up to bathroom and pacing in room frequently as well as twisting and turning around when in bed. PRN Atvan given x2. Pt c/o intermittent nausea with dry heaving, no vomiting noted but did have some blood tinged phlegm. PRN Zofran given x1. MD updated and in to see pt. Patient able to rest comfortably at times.
[2025-05-02] VITALS: BP 115/86; PULSE 55; RESP 20; TEMP 37.1; O2SAT 98
[2025-05-02] MEDS: TIZANIDINE HCL 4 MG TABLET PO ×2 (00:05→04:52)
[2025-05-02] MEDS: METOCLOPRAMIDE HCL 5 MG/ML INJ 10 MG IVP ×2 (00:35→10:28)
[2025-05-02] MEDS: LACTATED RINGERS 1000 ML 1,000 ML 125 ML IV (00:38)
[2025-05-02 02:02] VITALS: BP 146/68; PULSE 46; RESP 20; TEMP 36.9; O2SAT 92
[2025-05-02] MEDS: ONDANSETRON 2 MG/ML inj 4 MG IVP ×2 (02:10→06:02)
--- NOTE | 2025-05-02 07:00 | PC.NURSE ---
Call placed to Zeke POSADA this morning to provide update of pt's restlessness unrelieved by PRN medications. SBAR report provided. See EMAR for new orders.
--- NOTE | 2025-05-02 07:00 | PC.NURSE ---
Pt alert and oriented to self and year only. Pt reports ?I just don?t feel good, my back hurts and I feel nauseous? while rocking back and forth then started to pace around room a few times unable to get comfortable and reported feeling restless and anxious, pt had several episodes like this throughout night. Pt discontinued x2 IVs with catheters intact, 2 new IVs inserted, pt discontinued the IV in his right wrist IV catheter intact. Pt now has 1 IV. Pt refused to keep telemonitor on, several attempts made to put telemonitor back on when pt was sleeping but pt pulled the monitor off.?Pt reports 5-8/10 pain in back, pain managed with PRN medication; nausea and anxiety managed with PRN medications.?Pt is up A1 with IV pole, pt gait is unsteady. Pt was bladder scanned for getting up to bathroom x2?times without voiding, scans showed 175 ml. Pt voided after. Pt got minimal amount of sleep, in-between bouts of restlessness. Pt?s fianc?e at bedside.?
[2025-05-02 07:20] LABS: Hematocrit 35.4 % (37.0-53.0); Hemoglobin* 12.2 gm/dL (13.5-17.5); Immature Granulocytes Pct Auto 0.2 %; Mean Corpuscular HGB Conc 35 gm/dL (32-36); Mean Corpuscular Hemoglobin 31 pg (26-34); Mean Corpuscular Volume 90 fL (80-100); RDW Coefficient of Variation % 12.9 % (11.5-15.5); Red Blood Count 3.93 m/uL (4.30-5.90); White Blood Count* 17.22 K/uL (4.50-11.00)
[2025-05-02 07:33] LABS: Albumin* 3.3 g/dL (3.3-5.0); Chloride* 103 mmol/L (96-114); Immature Granulocytes Abs Auto 0.00 K/uL (0.00-0.30); Lymphocytes Absolute Auto 1.90 K/uL (0.90-2.90); Potassium* 3.7 mmol/L (3.6-5.1); Sodium* 132 mmol/L (135-149)
[2025-05-02 07:34] LABS: Slide Review Reflex No
[2025-05-02 07:35] LABS: Alanine Aminotransferase* 29 U/L (4-50); Alkaline Phosphatase* 67 U/L (40-150); Anion Gap -1 mEq/L (7-15); Aspartate Amino Transferase* 101 U/L (12-35); Bilirubin Total* 0.6 mg/dL (0.1-1.5); Blood Urea Nitrogen* 15 mg/dL (5-24); Carbon Dioxide* 30 mmol/L (20-32); Creatinine* 0.6 mg/dL (0.5-1.5); Est. Creatinine Clearance* 173.86; Estimated Glomerular Filt Rate 121 ml/min
[2025-05-02 07:36] LABS: Calcium* 8.7 mg/dL (8.4-10.6); Glucose* 110 mg/dL (60-115); Total Protein* 5.7 g/dL (6.0-8.3)
[2025-05-02 08:29] VITALS: BP 154/80; PULSE 62; RESP 20; TEMP 37.2; O2SAT 97
[2025-05-02] MEDS: METHADONE 10 MG TABLET 50 MG PO (08:33)
[2025-05-02] MEDS: SODIUM CHLORIDE 0.9 % (FLUSH) 10 ML SYRINGE 5 ML IVF (10:29)
--- NOTE | 2025-05-02 11:57 | P.DS_ITS ---
DS: Providers Provider Date Seen: 05/02/25 Date of admission: 05/01/25 12:01 Primary care physician: Not a Local Provider Admitting Clinician: Priyanka Julio MD Consults: 05/01/25 12:07 Consult to Physical Therapy [CONS] Routine Comment: Reason(s) for PT Consult:: Evaluate and Treat Any Restrictions?:: No Restrictions Comment: back pain, L2 compression fracture Attending Physician on discharge: Niurka Winchester MD Date of Discharge: 05/02/25 DS: Diagnosis Discharge Diagnosis (1) Leukocytosis: Status: Acute Problem details: - presumably 2/2 colitis/vomiting, did not require antibiotic therapy - WBC trending downward upon d/c, VSS (2) Tobacco use: Status: Acute Problem details: - 1ppd, would like patch while in the hospital - recommend tobacco cessation (3) TBI (traumatic brain injury): Status: Acute Problem details: - after seizure 2021 with acute respiratory failure, required short course of intubation (4) Colitis: Status: Acute Problem details: - noted on 04/30 imaging - per chart review, colitis of sigmoid colon (incidentally noted) on 2021 CT, partner notes history of intermittent hematochezia - recommend outpatient f/u and colonoscopy (has never had) (5) Hypokalemia: Status: Acute Problem details: - likely 2/2 vomiting, replacing IV and oral, follow - resolved 05/02 (6) Chronic pain: Status: Acute Problem details: - Methadone Rx per [facility] in [place] ([phone]), on 50mg/day. Last dose at home taken 05/01 (confirmed with clinic by phone) - patient takes 50mg/day, vomiting dose on 05/01 in the morning. Per clinic, should receive 80% of home dose if vomits; will given 40mg 05/01 and restart 50mg 05/02 - close f/u with clinic upon discharge (7) Compression fracture: Status: Acute Problem details: - L2, noted on 04/30 imaging - acuity unclear, possibly related to seizure/fall on 04/30, also has chronic appearing compression fractures of T8, T11, T12 - no red flag symptoms - pain management: Lidocaine patch, scheduled APAP, Calcitonin nasal spray, prn Tizanidine, home Methadone (8) Dehydration: Status: Acute Problem details: - 2/2 vomiting, treat with IV fluids and slow advancement of diet - improved upon discharge 05/02 (9) Vomiting: Status: Acute Problem details: - mild colitis on 04/30/25 CT, also concern of cyclic vomiting 2/2 marijuana use - resolved during stay, tolerating po intake day one and ready for d/c (10) Methadone dependence: Status: Acute Problem details: - Methadone Rx per [facility] in [place] ([phone]), on 50mg/day. Last dose at home taken 05/01 (confirmed with clinic by phone) - patient takes 50mg/day, vomiting dose on 05/01 in the morning. Per clinic, should receive 80% of home dose if vomits; will given 40mg 05/01 and restart 50mg 05/02 - close f/u with clinic upon discharge (11) Generalized seizure: Status: Acute Problem details: - seizure disorder, on Keppra - has had seizures as recently as 04/30 (2/2 vomiting up medication) - continue Keppra, seizure precautions, no seizures during stay DS: Summary Hospital Course Hospital Course: Karel Zambrano is a 44 year old male with a history of seizure disorder, TBI, h/o previous opiate abuse currently maintained on Methadone, who presented to the ER on 05/01 for worsening back pain. He was also seen in ER on 04/30 after having a seizure at home, fell against a wall (per partner, who witnessed this). Prior to the seizure, he'd been having nausea/vomiting and hadn't been able to keep down his Keppra. During ER visit 04/30, CT of abdomen and pelvis obtained 2/2 vomiting with the below findings: IMPRESSION: 1. Mild diffuse colonic wall thickening, compatible with mild colitis, likely on the basis of an infectious or inflammatory process. 2. Normal appendix. 3. Mild age-indeterminate L2 compression fracture. Recommend correlation with site for focal tenderness. 4. Mild chronic-appearing T8, T11, and T12 compression fractures. He was found to have a lactate of 3.3 and K of 2.9 in the ER, unable to tolerate po intake. Given IV Keppra, then admitted for IVFs, potassium replacement. Back pain treated with Lidocaine patch, Tizanidine, Tylenol, Calcitonin. Noted to have mild Methadone withdrawal during stay, given 80% of home Methadone dose on 05/01, home dose of 50mg 05/02. Will f/u with Methadone clinic tomorrow for refill. Notable findings, above. Tolerating po intake and appropriate for d/c on 05/02. Needs PCP for f/u of colitis, recurrent vomiting, marijuana use. Status at Discharge Functional status at discharge: independent ambulation Overall status at discharge: patient is progressing back to baseline Time Spent with Patient Time attestation: Total time spent providing and/or coordinating discharge services: Time spent: Greater than 30 minutes Specific discharge activities: med rec, review plan of care with partner, education Exam Narrative: Exam Narrative: Patient laying in bed, covers his head with a blanket when I enter the room He does not appear toxic, he is able to roll from side to side without back discomfort, able to move legs without radicular pain Cardiovascular exam exhibits regular rate rhythm concerning murmurs, breathing comfortably Scattered bruising on extremities, no new skin lesions noted Const: Vital Signs, click to edit/add: Vital Signs - 24 hr 05/01/25 13:58 05/01/25 14:06 05/01/25 15:00 Temperature 98.9 F 97.4 F L Pulse Rate 46 L Pulse Rate [Left R adial] 58 L 48 L Respiratory Rate 22 16 Blood Pressure [Ri ght Arm] 140/79 H 153/73 H Pulse Oximetry 95 95 Oxygen Delivery Me thod Room Air Room Air 05/01/25 19:00 05/01/25 23:00 05/02/25 00:00 Temperature 97.0 F L Pulse Rate 51 L Pulse Rate [Left R adial] 54 L 55 L Respiratory Rate 18 20 Blood Pressure [Ri ght Arm] 106/70 Pulse Oximetry 94 Oxygen Delivery Me thod Room Air 05/02/25 00:00 05/02/25 02:02 05/02/25 08:29 Temperature 98.7 F 98.5 F 98.9 F Pulse Rate Pulse Rate [Left R adial] 55 L 46 L 62 Respiratory Rate 20 20 20 Blood Pressure [Ri ght Arm] 115/86 146/68 H 154/80 H Pulse Oximetry 98 92 97 Oxygen Delivery Me thod Room Air Room Air Room Air DS: Data Data Completed and Pending Labs on day of discharge: Labs from last 24 hours 05/02/25 05/01/25 05/01/25 07:10 20:02 18:50 WBC 17.22 H RBC 3.93 L Hgb 12.2 L Hct 35.4 L MCV 90 MCH 31 MCHC 35 RDW Coeff of Ruy 12.9 Plt Count 130 L Neut % (Auto) 83.1 H Lymph % (Auto) 11.0 L [place] % (Auto) 5.6 Eos % (Auto) 0.0 Baso % (Auto) 0.1 Neut # (Auto) 14.30 H Lymph # (Auto) 1.90 [place] # (Auto) 1.00 H Eos # (Auto) 0.00 Baso # (Auto) 0.00 Abs Immat Gran (auto) 0.00 Imm/Tot Granulo (auto) 0.2 Sodium 132 L Potassium 3.7 Chloride 103 Carbon Dioxide 30 Anion Gap -1 L BUN 15 Creatinine 0.6 Estimated Creat Clear 173.86 Estimated GFR 121 Glucose 110 Lactate 2.7 H Calcium 8.7 Magnesium 2.0 Total Bilirubin 0.6 AST 101 H ALT 29 Alkaline Phosphatase 67 Total Protein 5.7 L Albumin 3.3 Lipase 60 Urine Opiates Screen Ur Buprenorphine Scrn Ur Oxycodone Screen Urine Methadone Screen Ur Barbiturates Screen U Tricyclic Antidepress Ur Phencyclidine Scrn Ur Amphetamines Screen U Methamphetamines Scrn U Benzodiazepines Scrn Urine Cocaine Screen U Marijuana (THC) Screen Ur Drug Screen Comment Lab Acknowledgement Test Added 05/01/25 05/01/25 15:20 10:37 WBC RBC Hgb Hct MCV MCH MCHC RDW Coeff of Ruy Plt Count Neut % (Auto) Lymph % (Auto) Bosque % (Auto) Eos % (Auto) Baso % (Auto) Neut # (Auto) Lymph # (Auto) [place] # (Auto) Eos # (Auto) Baso # (Auto) Abs Immat Gran (auto) Imm/Tot Granulo (auto) Sodium 135 Potassium 3.7 Chloride 108 Carbon Dioxide 23 Anion Gap 4 L BUN 15 Creatinine 0.7 Estimated Creat Clear 149.02 Estimated GFR 115 Glucose 116 H Lactate 2.5 H Calcium 8.6 Magnesium 2.2 Total Bilirubin AST ALT Alkaline Phosphatase Total Protein Albumin Lipase Urine Opiates Screen POSITIVE A Ur Buprenorphine Scrn Negative Ur Oxycodone Screen Negative Urine Methadone Screen POSITIVE A Ur Barbiturates Screen Negative U Tricyclic Antidepress Negative Ur Phencyclidine Scrn Negative Ur Amphetamines Screen Negative U Methamphetamines Scrn Negative U Benzodiazepines Scrn POSITIVE A Urine Cocaine Screen Negative U Marijuana (THC) Screen POSITIVE A Ur Drug Screen Comment See Note Lab Acknowledgement Discharge Plan Discharge Disposition: Home, Self-Care Date of Admission: 05/01/25 12:01 Attending Provider on Discharge: Niurka Winchester Primary Care Provider: Provider,Not a Local Condition: Improved Anticipated Discharge Date/Time: 05/02/25 09:53 Discharge Medications: New calcitonin (salmon) 200 unit/actuation [place],Non-Aerosol 1 spray intranasal HS Qty: 3.7 0RF Rx Instructions: take for 30 days for L2 compression fracture nicotine 14 mg/24 hr Patch 24 Hour 1 patch transdermal Q24H Qty: 28 0RF tizanidine 4 mg Tablet 4 mg PO Q6H PRNQty: 20 0RF metoclopramide HCl [Reglan] 5 mg tablet 5 mg PO Q8H PRN (Reason: nausea and vomiting) Qty: 10 0RF acetaminophen 325 mg capsule 975 mg PO Q8H Qty: 60 0RF Rx Instructions: please recommend that patient use this dose lidocaine 5 % adhesive patch,medicated 1 patch topical DAILY Qty: 30 0RF Rx Instructions: leave on most painful area for up to 12 hrs, Good RX coupon please Continued methadone 10 mg tablet 50 mg PO DAILY levetiracetam [Keppra] 500 mg tablet 500 mg PO BID Qty: 60 0RF Discharge Orders: Discharge Order (Routine); Ordered 05/02/25 Ordered By: Niurka Winchester Patient Education: Metoclopramide (By mouth), Acetaminophen (By mouth), Nicotine (Absorbed through the skin), Lidocaine (On the skin), Tizanidine (By mouth), Calcitonin (Into the nose) Additional Instructions: It is an excellent idea to establish care with a PCP locally to evaluate your vomiting and colitis. You may need a colonoscopy for further evaluation. We recommend no marijuana use as this can making vomiting worse. You received a dose of Methadone on 05/02 - you need to be seen at your clinic tomorrow for refills. For back pain, SCHEDULE Tylenol 975 mg 2-3 times/day. You can also take 400mg of Ibuprofen with meals (take with food as it can cause acid reflux) Medications at pharmacy: - Tizanidine as needed for muscle spasms - Lidocaine patch on back daily - Calcitonin nasal spray (this helps with pain in your back, take nightly for one month) - Reglan as needed for nausea (take before eating) - Nicotine patch (quitting smoking is an excellent idea for your overall health) Activity Level: Activity as Tolerated and No strenuous activity Activity Detail: Walking 30 minutes/day recommended for your back, also gentle stretching morning and night Follow Up Appointments: James Dejesus MD [Referring, Family Practice] - 05/08/25 11:00 am Referral Note: [facility] needs to establish care after hospital stay. Provider,Not a Local [Primary Care Provider, Family Practice] Referral Note: Forms: Patient Belongings, MyHealth Info Instructions
--- NOTE | 2025-05-02 13:22 | REH.PT ---
Attempt made at 0900 for PT evaluation, pt asleep and nsg stated that pt is up Ind in room without assist at this time. Return visit at 1215 and pt had been discharged.
== END 2025-05-02 12:53 | disposition home or self-care (01) | DRG 249 ==
LOC: ED 10:51 → MEDSURG 12:02
PROVIDERS: Family Medicine; Student in an Organized Health Care Education/Training Program; Admitting Provider Family Medicine; Emergency Provider Family Medicine; Visit Provider Family Medicine
DX: K52.9 Noninfective gastroenteritis and colitis, unspecified (principal); E87.6 Hypokalemia; F11.23 Opioid dependence with withdrawal; D72.829 Elevated white blood cell count, unspecified; R11.10 Vomiting, unspecified; E86.0 Dehydration; S32.029A Unspecified fracture of second lumbar vertebra, initial encounter for closed fracture; G89.29 Other chronic pain; M54.50 Low back pain, unspecified; F41.1 Generalized anxiety disorder; G40.909 Epilepsy, unspecified, not intractable, without status epilepticus; F17.210 Nicotine dependence, cigarettes, uncomplicated; S22.069D Unspecified fracture of T7-T8 vertebra, subsequent encounter for fracture with routine healing; S22.089D Unspecified fracture of T11-T12 vertebra, subsequent encounter for fracture with routine healing; Z87.820 Personal history of traumatic brain injury
CPT/HCPCS: 36415; 51798; 70450; 80048; 80053; 80177; 80306; 82803; 83605; 83690; 83735; 83986; 84132; 85025; 86140; 87040; 93005; 94761; 99284; 99285; A9270; J1171; J1885; J1953; J2060; J2405; J2765; J3360; J3475; J3480; J7030; J7120; S4990

== ENCOUNTER 2025-05-05 15:00 | Emergency (ER) | payer BC, SELFPAY ==
--- OUTSIDE RECORDS SUMMARY | 2015-09-12 19:00 | XMS_ITS | Continuity of Care Document ---
Author Organization BALDEMAR Castelan Address [address] [place] [address] Phone Care Team Providers Care Double Backer Name Role Phone Unavailable Unavailable Unavailable Allergies, Adverse Reactions, Alerts Substance Reaction Status Criticality acetone Active No Information DIPHENHYDRAMINE HCL Rashes, sweating, dizziness Active No Information Medications Medication Instructions Dosage Effective Dates (start - stop) Status Comments acetaminophen 500 mg capsule take as needed - Active Xanax 0.5 mg tablet take 1 (0.5MG) by oral route every day 0.5 MG - Active methocarbamol 750 mg tablet take 1 Tablet by ORAL route every 8 hours 750 MG - Active Procedures Procedure Date No Show [...] Providers Copied on Encounter BALDEMAR Castelan, [address], [place], [place], [address], [place] tel:[phone] [facility] No Information 5 No Information Referring Provider: Donell June MD, [address], [place], [address]. tel:[phone] Offic/outpt E&m Estab Mod-hi 2 Flip, [facility], [address], [place], [place], [address], [place] tel:[phone] [facility] No Information 3 Ynes Cannon. [address], [address], [place], [address], [place]. tel:[phone] Referring Provider: REFERRAL SELF, JODY. Flip [facility], [address], [place], [place], [address], [place] tel:[phone] Erica Castelan [facility] [address] No Information 3 Candelario DPT Cricket. [address], [place], [place], [address], [place]. tel:[phone] Referring Provider: REFERRAL SELF[place] Flip [facility], [address], [place], [place], [address], [place] tel:[phone] Erica Castelan [facility] [address] No Information 3 Candelario DPT Cricket. [address], [place], [place], [address], [place]. tel:[phone] Referring Provider: REFERRAL SELF, JODY. Flip [facility], [address], [place], [place], [address], [place] tel:[phone] Erica Castelan [facility] [address] No Information 3 Candelario DPT Cricket. [address], [place], [place], [address], [place]. tel:[phone] Referring Provider: REFERRAL SELF, JODY. Flip [facility], [address], [place], [place], [address], [place] tel:[phone] [facility] No Information 3 Eden Pierre. [address], [place], [address], [place]. tel:[phone] Referring Provider: REFERRAL SELF[place]. Offic/outpt E&m Estab Mod-hi 2 Flip [facility], [address], [place], [place], [address], [place] tel:[phone] [facility] No Information 3 Schwemm Mya. [address], [address], [place], [place], [address], [place]. tel:[phone] Referring Provider: REFERRAL SELF[place] Offic/outpt E&m Estab Mod-hi 2 Flip [facility], [address], [place], [place], [address], [place] tel:[phone] [facility] No Information 3 Schwemm Mya. [address], [place], [place], [address], [place]. tel:[phone] Referring Provider: REFERRAL SELF, JODY. Flip, [facility], [address], [place], [place], [address], [place] tel:[phone] Columbiamartin Castelan [facility] [address] No Information 3 Luann Marjorie. [address], [address], [place], [address], [place]. tel:[phone] Referring Provider: REFERRAL SELF[place]. Offic/outpt E&m New Mod-hi 45 Flip [facility], [address], [place], [place], [address], [place] tel:[phone] [facility] No Information 3 Luciano Roque. [address], [address], [place], [place], [address], [place]. tel:[phone] Referring Provider: REFERRAL SELF, JODY. Family History Family Member Type Diagnosis Age At Onset No Information Payers Payer name Insurance type Covered libertarian ID Authoriza tion(s) No Information Social History [...]
--- OUTSIDE RECORDS SUMMARY | 2021-10-31 11:14 | XMS_ITS | Continuity of Care Document ---
Author Organization [facility] sudarshan Address [address] [place] [phone] Phone Care Team Providers Care Communication Consultant Name Role Phone Will Ata LEO Unavailable [...] Diagnoses Date Provider Providers Copied on Encounter [facility], [address] [place], [place], [id number] , [place] tel:[phone] [facility] No Information 2 Will Ata. [address] [place], [place], [id number] , [place]. tel:[phone] OFFICE/OUTPAT IENT VISIT, EST [facility], [address] [place], [place], [id number] , [place] tel:[phone] [facility] Erica Back Pain (chief complaint) LumbagoDegeneration of lumbar or lumbosacral intervertebral disc Sep-2 1-201 5 Abad Courtney. [address] [place], [id number] , [place]. tel: [phone] Referring Provider: Ivonne Curiel [address], [place], [address]. tel:[phone] OFFICE/OUTPAT IENT VISIT, EST [facility], [address] [place], [id number] , [place] tel: [phone] [facility] [place] Back Pain (chief complaint) LumbagoDegeneration of lumbar or lumbosacral intervertebral discCurrent use of a medication 5 Abad Courtney. [address] [place], [id number] , [place]. tel: [phone] Referring Provider: Ivonne Curiel [address], [place], [address]. tel:[phone] [facility], [address] [facility] [place], [id number] , [place] tel: [phone] [facility] [place] Current use of a medication 5 Abad Courtney. [address] [facility] [place], [id number] , [place]. tel: [phone] OFFICE CONSULTATION [facility], [address] [facility] [place], [id number] , [place] tel: [phone] [facility] [place] Back Pain (chief complaint) Degeneration of lumbar or lumbosacral intervertebral discLumbago 0 5 Abad Courtney. [address] [place], [id number] , [place]. tel:[phone] Referring Provider: Ivonne Curiel [address], [place], [address]. tel:[phone] Family History Family Member Type Diagnosis Age At Onset No Information Payers Payer name Insurance type Covered libertarian ID Authoriza tipiyush(s) Blue Cross Blue Shield Of [facility] [id number] 00 Social History Type Description Quantity Date [...] disc. He had his imaging done at [facility]. He consulted a surgeon at [facility] who did not recommend [...]
--- OUTSIDE RECORDS SUMMARY | 2025-05-05 15:04 | XMS_ITS | Clinical Summary ---
Author Organization [facility] Address [address] , [address] [place] [address] Phone Care Team Providers Care Bowling Floor Manager Name Role Phone Rufus Mckeon MD [id number] [phone] Conditions or Problems Problem Name Problem Code Onset Date Status Entry Date Provider Comment Standard Description Annotate Cognitive changes 558549103 (SNOMED CT) 12/19 Active 12/19 Rufus Mckeon MD Impaired cognition MRI, brain, abnormal 765984157 (SNOMED CT) 12/19 Active 12/19 Rufus Mckeon MD Magnetic resonance imaging of brain abnormal Opioid dependence with opioid-induc ed disorder F11.29 (ICD-10-CM ) 06/10 Active 12/19 Rufus Mckeon MD Opioid dependence with unspecified opioid-induced disorder Imported from [facility]: [facility] (19-Dec-2021 at 01:43:48 PM) Lumbar radiculopath y 836939732 (SNOMED CT) 04/28 Active 12/19 Rufus Mckeon MD Lumbar radiculopathy Imported from [facility]: [facility] (19-Dec-2021 at 01:43:48 PM) Injury of knee, leg, ankle and foot S89.90xA (ICD-10-CM ) Active 12/19 Rufus Mckeon MD Unspecified injury of unspecified lower leg, initial encounter Imported from [facility]: [facility] (19-Dec-2021 at 01:43:48 PM) History of heroin use Z87.898 (ICD-10-CM ) 06/04 Active 12/19 Rufus Mckeon MD Personal history of other specified conditions Imported from [facility]: [facility] (19-Dec-2021 at 01:43:48 PM) 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 (19-Dec-2021 at 01:43:48 PM) Seizure 36991646 (SNOMED CT) 11/14 Active 12/19 Rufus Mckeon MD Seizure Imported from [facility]: [facility] (19-Dec-2021 at 01:43:07 PM) H/O drug abuse F19.11 (ICD-10-CM ) 05/30 Active 12/19 Rufus Mckeon MD Other psychoactive substance abuse, in remission Imported from [facility]: [facility] (19-Dec-2021 at 01:43:07 PM) Depression, recurrent 927511698 (SNOMED CT) 11/14 Active 12/19 Rufus Mckeon MD Recurrent depression Imported from [facility]: [facility] (19-Dec-2021 at 01:43:07 PM) Chronic bilateral low back pain M54.50 (ICD-10-CM ) 05/10 Active 12/19 Rufus Mckeon MD Low back pain, unspecified Imported from [facility]: [facility] (19-Dec-2021 at 01:43:07 PM) Benzodiazepi ne dependence 644398686 (SNOMED CT) 05/30 Active 12/19 Rufus Mckeon MD Benzodiazepine dependence Imported from [facility]: [facility] (19-Dec-2021 at 01:43:07 PM) Amnesia 64831361 (SNOMED CT) 11/14 Active 12/19 Rufus Mckeon MD Amnesia Imported from [facility]: [facility] (19-Dec-2021 at 01:43:07 PM) Medications Medication Instructions Start Date Stop Date Generic Name NDC Provider DIVALPROEX SODIUM 500 MG TBEC Take 3 tab q AM and 4 tabs q PM divalproex [id number] Rufus Mckeon MD DIVALPROEX SODIUM 500 MG TBEC Take 3 tab q AM and 4 tabs q PM 6 divalproex [id number] Bernadette Brenner RN DIVALPROEX SODIUM 500 MG TBEC Take 4 tablet by mouth twice a day Take 4 tab q AM and 5 tabs q PM 6 divalproex [id number] Bernadette Brenner RN DIVALPROEX SODIUM 500 MG TBEC Take 4 tablet by mouth twice a day 6 divalproex [id number] Bernadette Brenner RN DIVALPROEX SODIUM 500 MG TBEC 4 tablet by mouth once a day 6 divalproex [id number] Bernadette Brenner RN METHADONE HCL 5 MG/5ML SOLN Take ml by mouth methadone [id number] Kimberli Brenner RN ALPRAZOLAM 2 MG TABS 1 tablet by mouth once a day 0 alprazolam [id number] Bernadette Brenner RN ALPRAZOLAM 2 MG TABS One po qd 0 alprazolam 76458243492 QIEUSER QIEUSER METHADONE HCL 5 MG/5ML SOLN Take by mouth. methadone [id number] QIEUSER QIEUSER DIVALPROEX SODIUM 500 MG TBEC 4 tablets daily 6 divalproex [id number] QIEUSER QIEUSER Medications Administered No information available. Allergies, Adverse Reactions, Alerts Allergy Name Reaction Description Start Date Severity Statu s Provider DIPHENHYDRAMINE Rash Mild Active Segun Mckeon MD DIPHENHYDRAMINE HCL Rash Mild Active Rufus Mckeon MD ACETONE Rash Severe Active Rufus christian MD Results Date Name Value Unit Range Flag Description Office Visit: Office Visit S eizures, amnesia 3 MRIs [facility] 2 fax SMOK STATUS current some day [...] Valproic Acid Total (Depakote) ORDERS EEG 3hr CPT-42791 EEG Setup CPT-68575 Video EEG 2-12hrs () 05/07 CPT-50290 Video EEG 2-12hrs (Nurys) 202 10/22/23 ORDERS Follow up as needed ORDERS TSH ORDERS ANCA ORDERS CBC with Diff/Platelet 03/27 ORDERS ESR (Sedimentation Rate) 202 10/21/13 ORDERS Protein C Panel ORDERS Protein S Panel ORDERS Factor V Leiden Mutation 202 10/21/13 ORDERS Neuropsychology Evaluation 2 CPT-63756 Npsy Interview w/Provider - 1st hour 2021 CPT-04966 Npsy Interp/Rpt by Provider - 1st hour 05/03/23 CPT-92287 Npsy Interp/Rpt by Provider - 2 hours 10/20/22 CPT-63129 Npsy Test by Tech (2+ Tests) - 1st 30 min CPT-01010 Npsy Test by Tech (2+ Tests) - 3 hours 05/03/23 CPT-27006 EEG EXTENDED 41-60mins (END) ORDERS EEG Sleep [...]
[2025-05-05 15:29] VITALS: BP 164/89; PULSE 55; RESP 20; TEMP 36.7; O2SAT 98; BMI 29.8
[2025-05-05 15:41] VITALS: BP 159/60; PULSE 55; RESP 20; TEMP 36.7; O2SAT 97
--- NOTE | 2025-05-05 15:44 | ED.GENADULT ---
HPI - General Adult General Chief complaint: Abdominal Pain Stated complaint: Burning in stomach Time Seen by Provider: 05/05/25 15:44 History of Present Illness HPI narrative: Pt's virgil provides hx at pt request in triage. Recent admission for back pain, seizure issue, colitis. Has been constipated since Thursday, concerned about burning pain in his abdomen , still has chronic excruciating pain in back. Has not passed gas in a few days. 44-year-old man presenting to the emergency depart with complaint severe burning in the left abdomen. Was recently admitted to this facility following vomiting and seizure and electrolyte abnormalities. Diagnosed also with colitis though had not been experiencing diarrhea. Underlying history of chronic pain managed with daily methadone. Noted numerous spinal compression fractures of chronic and age indeterminate. He now has apparently not had a bowel movement since discharge now 5 days. Did receive a laxative as they report while in the hospital but has not had anything since. Has only been taking acetaminophen in addition to his usual methadone for pain. Does not recall the last time he has passed gas. Has not been vomiting. No fever. Pain is ?excruciating? and has kept him awake. Denies a history of problem with constipation even with longstanding methadone. Discussing options for pain medicine; he is disinterested in trying anything particularly new including options that have been given to him with prior care here noting that 2 Percocet seem to help all right. Occasional ibuprofen use. Related Data Home Medications ?Medication ?Instructions ?Recorded ?Confirmed methadone 10 mg tablet 50 mg PO DAILY 03/27/25 05/05/25 ondansetron 4 mg disintegrating 2 mg PO Q6-8H PRN 05/05/25 05/05/25 tablet Previous Rx's ?Medication ?Instructions ?Recorded levetiracetam 500 mg tablet 500 mg PO BID #60 tabs 04/30/25 (Keppra) acetaminophen 325 mg capsule 975 mg (3 x 325 mg) PO Q8H #60 caps 05/02/25 calcitonin (salmon) 200 1 spray intranasal HS #3.7 mL 05/02/25 unit/actuation nasal spray lidocaine 5 % topical patch 1 patch topical DAILY #30 ea 05/02/25 metoclopramide HCl 5 mg tablet 5 mg PO Q8H PRN nausea and 05/02/25 (Reglan) vomiting #10 tabs nicotine 14 mg/24 hr daily 1 patch transdermal Q24H #28 ea 05/02/25 transdermal patch tizanidine 4 mg tablet 4 mg PO Q6H PRN #20 tabs 05/02/25 aluminum-mag hydroxide-simethicone 10 ml PO 5XD PRN dyspepsia #300 mL 05/05/25 200 mg-200 mg-20 mg/5 mL oral susp (Antacid Anti-Gas) famotidine 20 mg tablet 20 mg PO .daily - bid PRN 05/05/25 dyspepsia #30 tabs magnesium citrate (OneLAX 300 ml PO DAILY PRN constipation 05/05/25 Magnesium Citrate oral solution) #296 mL polyethylene glycol 3350 17 17 g PO .daily - tid PRN #238 grams 05/05/25 gram/dose oral powder (Miralax) Allergies Allergy/AdvReac Type Severity Reaction Status Date / Time diphenhydramine (From Allergy Mild Hives Verified 04/30/25 19:27 Benadryl) Review of Systems Status of ROS: Reports: 6 or more systems reviewed and unremarkable except as noted in History and below [facility] Medical History Tobacco use ?Z72.0 - Tobacco use (ICD-10) H/O drug abuse ?F19.11 - Other psychoactive substance abuse, in remission (ICD-10) [place] (generalized anxiety disorder) ?F41.1 - Generalized anxiety disorder (ICD-10) Depression, recurrent ?F33.9 - Major depressive disorder, recurrent, unspecified (ICD-10) Thrombocytopenia ?D69.6 - Thrombocytopenia, unspecified (ICD-10) TBI (traumatic brain injury) ?S06.9XAA - Unspecified intracranial injury with loss of consciousness status unknown, initial encounter (ICD-10) Seizures ?R56.9 - Unspecified convulsions (ICD-10) Intussusception ?K56.1 - Intussusception (ICD-10) Back pain ?M54.9 - Dorsalgia, unspecified (ICD-10) Anxiety disorder ?F41.9 - Anxiety disorder, unspecified (ICD-10) Surgical History History of wisdom tooth extraction ?K08.409 - Partial loss of teeth, unspecified cause, unspecified class (ICD-10) Social History Narrative: Lives with in [place]. Brother Tommy would be primary decision maker if needed. 1ppd smoker, no ETOH use. History of drug abuse, currently on Methadone maintenance through [facility] in [place]. Full Code. What is your current living situation?: declined to answer Problems where you live: declined to answer In the past 12 months, utilities in danger of being shut off: declined to answer In past 12 months, lack of transportation kept you from medical appts, meetings, work, or getting things needed for daily living: declined to answer In the past 12 mos, have been you worried that your food would run out before you had money to buy more?: declined to answer In the past 12 mos, the food you bought just didn't last and you didn't have money to buy more?: declined to answer Smoking Status: Current every day smoker What tobacco products do you use: cigarettes Smoking packs per day: 1 Smoking cigarettes per day: 20.0 Do you use any of these nicotine containing products: Vaping Products Second hand tobacco smoke exposure: No How often do you have a drink containing alcohol: never AUDIT-C Alcohol total score: 0 Non-prescribed substance use: other Non-prescribed substance use details: methadone How often does anyone, including family, friends and others, physically hurt you: decline to answer How often does anyone, including family, friends and others, insult or talk down to you: decline to answer How often does anyone, including family, friends and others, threaten you with harm: decline to answer How often does anyone, including family, friends and others, scream or curse at you: decline to answer service: No Health Related Social Needs: unsheltered homelessness (Z59.02) Exam Narrative: Exam Narrative: Quite pleasant. Calm. Had been resting when I entered the room. Does seem a little tired. Breathing easily. Lungs appear to be clear. Heart in regular to slower rate and regular rhythm. Abdomen with minimal to nonexistent bowel sounds. He is generally soft without peritoneal signs. No masses. Pain is not particularly reproducible in his abdomen. Not have a static in his responses. Const: Vital Signs, click to edit/add: Vital Signs - 24 hr 05/05/25 15:29 05/05/25 15:41 Temperature 98.0 F 98.0 F Pulse Rate [Pulse Oximeter] 55 L 55 L Respiratory Rate 20 20 Blood Pressure [Ri ght Upper Arm] 164/89 H 159/60 H Pulse Oximetry 98 97 Oxygen Delivery Me thod Room Air Room Air Documenting provider has reviewed patient's vital signs: yes Course Vital Signs Vital signs: Initial Vital Signs Temperature 98.0 F 05/05/25 15:29 Temperature Source Temporal Artery Scan 05/05/25 15:29 Pulse Rate 55 L 05/05/25 15:29 Respiratory Rate 20 05/05/25 15:29 Blood Pressure 164/89 H 05/05/25 15:29 Blood Pressure Mean 114 H 05/05/25 15:29 Blood Pressure Position Sitting 05/05/25 15:29 Pulse Oximetry 98 05/05/25 15:29 Oxygen Delivery Method Room Air 05/05/25 15:29 Vital Signs Temperature 98.0 F 05/05/25 15:29 Pulse Rate 55 L 05/05/25 15:29 Respiratory Rate 20 05/05/25 15:29 Blood Pressure 164/89 H 05/05/25 15:29 Pulse Oximetry 98 05/05/25 15:29 Oxygen Delivery Method Room Air 05/05/25 15:29 Temperature 98.0 F 05/05/25 15:41 Pulse Rate 50 L 05/05/25 18:14 Respiratory Rate 18 05/05/25 18:14 Blood Pressure 123/81 05/05/25 18:14 Pulse Oximetry 97 05/05/25 15:41 Oxygen Delivery Method Room Air 05/05/25 15:41 Medications Administered Medications: Discontinued Medications Generic Name Dose Route Start Last Admin Trade Name Freq PRN Reason Stop Dose Admin Lidocaine/Aluminum/Magnesium/Simeth 30 ml 05/05/25 16:48 05/05/25 16:58 Gi Cocktail (Visc Lido/Antacid) 30 Ml PO 05/05/25 16:49 30 ml ONCE ONE Administration Medical Decision Making MDM Narrative Medical decision making narrative: Underlying history of this colitis though does not really seem to have typical symptoms for this. I would suspect burning pain would be more related to constipation given described history. Suppose a could be radiating from the back but no findings on prior imaging to suggest an impingement. Would consider giving a couple tabs of Percocet as discussed. Further clarification of area of burning pain does include the epigastrium. This could involve biliary disease I suppose or pancreatitis. Would like to potentially try GI cocktail though as well after discussing with nursing. I think is actually having some epigastric area discomfort in addition to this burning pain in the left low abdomen. Would recheck cbc for continued improvement of this leukocytosis particularly in the setting of noted colitis. Decided also to do an abdominal x-ray to confirm constipation or evidence of ileus/small-bowel obstruction; the latter I doubt. Independent review by me of two-view/flat and upright abdomen x-ray does show I think excessive stool particularly on the right and transverse colon. GI cocktail was quite helpful with burning pain as described drop to nearly 0. He acknowledged no need for the Percocet. Cbc with mildly elevated white count now improved. Reassuring. They would like prescriptions for bowel aid medications and further recommendations. See patient discharge plan for further discussion I am relieved you are feeling better. Your white count looks better as well. Continue to focus on hydration. Do your best to incorporate vegetables and your diet for extra fiber. Generally would be good to use MiraLax equivalent each dose diluted into at least 8 oz of liquid to soften your stool. Take between 1-3 doses a day adjusting to stool consistency. Might need to continue to treat for 1-2 weeks. For more immediate affect, if you are experiencing really hard stool, placement of an enema or suppository overnight can be helpful. Otherwise from the top, prescribing a dose of magnesium citrate. Can repeat this does the next day if no significant result. Since opiates create constipation by slowing down the GI tract, senna products can be helpful for brief courses if opiate related constipation is experience. They stimulate the GI tract by irritation. Medications like docusate work more like MiraLax or Benefiber or fiber in general by drawing water into the gut to soften the stool. As far as your upper stomach area goes, it seems like you had a flare of gastritis or heartburn. The GI cocktail worked well. This is a combination of lidocaine and liquid antacid/anti-gas like Mylanta. For of repeat flare you might consider dosing with Mylanta equivalent; generic version available or famotidine as discussed. Be seen for persistent pain not improved with treatments as above, repeated vomiting, associated fever. Medical Records Medical records reviewed: Yes I reviewed the patient's medical records Lab Data Lab results reviewed: Yes I reviewed the patient's lab results Labs: Lab Results 05/05/25 Range/Units 17:03 WBC 13.28 H (4.50-11.00) K/uL RBC 4.56 (4.30-5.90) m/uL Hgb 13.8 (13.5-17.5) gm/dL Hct 40.8 (37.0-53.0) % MCV 90 (80-100) fL MCH 30 (26-34) pg MCHC 34 (32-36) gm/dL RDW Coeff of Ruy 12.8 (11.5-15.5) % Plt Count 191 (140-440) K/uL Neut % (Auto) 74.2 H (42.0-72.0) % Lymph % (Auto) 16.0 L (20-44) % [place] % (Auto) 7.6 (0.0-11.0) % Eos % (Auto) 0.7 (0.0-7.0) % Baso % (Auto) 0.1 (0.0-3.0) % Neut # (Auto) 9.90 H (1.7-7.0) K/uL Lymph # (Auto) 2.10 (0.90-2.90) K/uL [place] # (Auto) 1.00 H (0.00-0.90) K/UL Eos # (Auto) 0.10 (0.00-0.50) K/uL Baso # (Auto) 0.00 (0.00-0.30) K/uL Abs Immat Gran (auto) 0.20 (0.00-0.30) K/uL Imm/Tot Granulo (auto) 1.4 % Discharge Plan Discharge Clinical Impression: Abdominal pain Patient Disposition: Home w/ Parent or Adult Condition: Improved Additional Instructions: I am relieved you are feeling better. Your white count looks better as well. Continue to focus on hydration. Do your best to incorporate vegetables and your diet for extra fiber. Generally would be good to use MiraLax equivalent each dose diluted into at least 8 oz of liquid to soften your stool. Take between 1-3 doses a day adjusting to stool consistency. Might need to continue to treat for 1-2 weeks. For more immediate affect, if you are experiencing really hard stool, placement of an enema or suppository overnight can be helpful. Otherwise from the top, prescribing a dose of magnesium citrate. Can repeat this does the next day if no significant result. Since opiates create constipation by slowing down the GI tract, senna products can be helpful for brief courses if opiate related constipation is experience. They stimulate the GI tract by irritation. Medications like docusate work more like MiraLax or Benefiber or fiber in general by drawing water into the gut to soften the stool. As far as your upper stomach area goes, it seems like you had a flare of gastritis or heartburn. The GI cocktail worked well. This is a combination of lidocaine and liquid antacid/anti-gas like Mylanta. For of repeat flare you might consider dosing with Mylanta equivalent; generic version available or famotidine as discussed. Be seen for persistent pain not improved with treatments as above, repeated vomiting, associated fever. Prescriptions: New magnesium citrate [OneLAX Magnesium Citrate] Solution 300 ml PO DAILY PRN (Reason: constipation) Qty: 296 1RF famotidine 20 mg tablet 20 mg PO .daily - bid PRN (Reason: dyspepsia) Qty: 30 0RF alum-mag hydroxide-simeth [Antacid Anti-Gas] 200-200-20 mg/5 mL suspension 10 ml PO 5XD PRN (Reason: dyspepsia) Qty: 300 0RF polyethylene glycol 3350 [Miralax] 17 gram/dose powder 17 g PO .daily - tid PRNQty: 238 1RF No Action methadone 10 mg tablet 50 mg PO DAILY levetiracetam [Keppra] 500 mg tablet 500 mg PO BID Qty: 60 0RF ondansetron 4 mg tablet,disintegrating 2 mg PO Q6-8H PRN calcitonin (salmon) 200 unit/actuation [place],Non-Aerosol 1 spray intranasal HS Qty: 3.7 0RF Rx Instructions: take for 30 days for L2 compression fracture nicotine 14 mg/24 hr Patch 24 Hour 1 patch transdermal Q24H Qty: 28 0RF tizanidine 4 mg Tablet 4 mg PO Q6H PRNQty: 20 0RF metoclopramide HCl [Reglan] 5 mg tablet 5 mg PO Q8H PRN (Reason: nausea and vomiting) Qty: 10 0RF acetaminophen 325 mg capsule 975 mg PO Q8H Qty: 60 0RF Rx Instructions: please recommend that patient use this dose lidocaine 5 % adhesive patch,medicated 1 patch topical DAILY Qty: 30 0RF Rx Instructions: leave on most painful area for up to 12 hrs, Good RX coupon please Follow Up/Referrals: Provider,Not a Local [Primary Care Provider, Family Practice] Stand Alone Forms: [facility] Info Instructions
--- NOTE | 2025-05-05 16:33 | XR_ITS ---
Patient: VIVI SOTO Facility:?[facility] Patient ID:?[id number] Site Patient ID:?[id number]. Site :?[id number] Study:?XRay-Abdomen FLAT/UPRIGHT-05/05/2025 4:50:28 PM Ordering Physician:?Deysi Marley Final Report: Indication: Left-sided burning abdominal pain Technique: Abdomen 5 view. Comparison: CT abdomen and pelvis 04/30/2025. Findings/Impression: Bowel: Bowel pattern is nonobstructive. Stool is present throughout the colon. Soft tissues: No sign of free air. No sign of soft tissue mass. No suspicious calcifications. Bones: Unremarkable for age. Dictated by Gwen Nguyễn MD @ 05/05/2025 5:09:17 PM (Electronic Signature)
[2025-05-05] MEDS: GI COCKTAIL (VISC LIDO/ANTACID) 30 ML PO (16:58)
--- OUTSIDE RECORDS SUMMARY | 2025-05-05 17:04 | XMS_ITS | Clinical Summary ---
Author Organization [facility] Address [address] , [address] [place] [address] Phone Care Team Providers Care Energy Efficient Site Manager Name Role Phone Rufus Mckeon MD Adcwowbgzos [phone] Conditions or Problems Problem Name Problem Code Onset Date Status Entry Date Provider Comment Standard Description Annotate Cognitive changes 868719717 (SNOMED CT) 12/19 Active 12/19 Rufus Mckeon MD Impaired cognition MRI, brain, abnormal 380963102 (SNOMED CT) 12/19 Active 12/19 Rufus Mckeon MD Magnetic resonance imaging of brain abnormal Opioid dependence with opioid-induc ed disorder F11.29 (ICD-10-CM ) 06/10 Active 12/19 Rufus Mckeon MD Opioid dependence with unspecified opioid-induced disorder Imported from [facility]: [facility] (19-Dec-2021 at 01:43:48 PM) Lumbar radiculopath y 086598878 (SNOMED CT) 04/28 Active 12/19 Rufus Mckeon MD Lumbar radiculopathy Imported from [facility]: [facility] (19-Dec-2021 at 01:43:48 PM) Injury of knee, leg, ankle and foot S89.90xA (ICD-10-CM ) Active 12/19 Rufus Mckeon MD Unspecified injury of unspecified lower leg, initial encounter Imported from [facility]: [facility] (19-Dec-2021 at 01:43:48 PM) History of heroin use Z87.898 (ICD-10-CM ) 06/04 Active 12/19 Rufus Mckeon MD Personal history of other specified conditions Imported from [facility]: [facility] (19-Dec-2021 at 01:43:48 PM) 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 (ICD-10-CM ) 06/10 Active 12/19 Rufus Mckeon MD Sedative, hypnotic, or anxiolytic use, unspecified, uncomplicated Imported from [facility]: [facility] (19-Dec-2021 at 01:43:48 PM) Seizure 28160873 (SNOMED CT) 11/14 Active 12/19 Rufus Mckeon MD Seizure Imported from [facility]: [facility] (19-Dec-2021 at 01:43:07 PM) H/O drug abuse F19.11 (ICD-10-CM ) 05/30 Active 12/19 Rufus Mckeon MD Other psychoactive substance abuse, in remission Imported from [facility]: [facility] (19-Dec-2021 at 01:43:07 PM) Depression, recurrent 855592800 (SNOMED CT) 11/14 Active 12/19 Rufus Mckeon MD Recurrent depression Imported from [facility]: [facility] (19-Dec-2021 at 01:43:07 PM) Chronic bilateral low back pain M54.50 (ICD-10-CM ) 05/10 Active 12/19 Rufus Mckeon MD Low back pain, unspecified Imported from [facility]: [facility] (19-Dec-2021 at 01:43:07 PM) Benzodiazepi ne dependence 363598344 (SNOMED CT) 05/30 Active 12/19 Rufus Mckeon MD Benzodiazepine dependence Imported from [facility]: [facility] (19-Dec-2021 at 01:43:07 PM) Amnesia 35769523 (SNOMED CT) 11/14 Active 12/19 Rufus Mckeon MD Amnesia Imported from [facility]: [facility] (19-Dec-2021 at 01:43:07 PM) Medications Medication Instructions Start Date Stop Date Generic Name NDC Provider DIVALPROEX SODIUM 500 MG TBEC Take 3 tab q AM and 4 tabs q PM divalproex [id number] Rufus Mckeon MD DIVALPROEX SODIUM 500 MG TBEC Take 3 tab q AM and 4 tabs q PM 6 divalproex [id number] Bernadette Brenner RN DIVALPROEX SODIUM 500 MG TBEC Take 4 tablet by mouth twice a day Take 4 tab q AM and 5 tabs q PM 6 divalproex [id number] Bernadette Brenner RN DIVALPROEX SODIUM 500 MG TBEC Take 4 tablet by mouth twice a day 6 divalproex [id number] Bernadette Brenner RN DIVALPROEX SODIUM 500 MG TBEC 4 tablet by mouth once a day 6 divalproex [id number] Bernadette Brenner RN METHADONE HCL 5 MG/5ML SOLN Take ml by mouth methadone [id number] Kimberli Brenner RN ALPRAZOLAM 2 MG TABS 1 tablet by mouth once a day 0 alprazolam [id number] Bernadette Brenner RN ALPRAZOLAM 2 MG TABS One po qd 0 alprazolam 05142702488 QIEUSER QIEUSER METHADONE HCL 5 MG/5ML SOLN Take by mouth. methadone 24642929981 QIEUSER QIEUSER DIVALPROEX SODIUM 500 MG TBEC 4 tablets daily 6 divalproex [id number] QIEUSER QIEUSER Medications Administered No information available. Allergies, Adverse Reactions, Alerts Allergy Name Reaction Description Start Date Severity Statu s Provider DIPHENHYDRAMINE Rash Mild Active Segun Mckeon MD DIPHENHYDRAMINE HCL Rash Mild Active Rufus Mckeon MD ACETONE Rash Severe Active Rufus christian MD Results Date Name Value Unit Range Flag Description Office Visit: Office Visit S eizures, amnesia 3 MRIs [facility] 2 fax SMOK STATUS current some day [...] Valproic Acid Total (Depakote) ORDERS EEG 3hr CPT-49895 EEG Setup CPT-57522 Video EEG 2-12hrs () 05/07 CPT-13501 Video EEG 2-12hrs (Nurys) 202 10/22/23 ORDERS Follow up as needed ORDERS TSH ORDERS ANCA ORDERS CBC with Diff/Platelet 03/27 ORDERS ESR (Sedimentation Rate) 202 10/21/13 ORDERS Protein C Panel ORDERS Protein S Panel ORDERS Factor V Leiden Mutation 202 10/21/13 ORDERS Neuropsychology Evaluation 2 CPT-89055 Npsy Interview w/Provider - 1st hour 2021 CPT-29450 Npsy Interp/Rpt by Provider - 1st hour 05/03/23 CPT-66890 Npsy Interp/Rpt by Provider - 2 hours 10/20/22 CPT-99069 Npsy Test by Tech (2+ Tests) - 1st 30 min CPT-59670 Npsy Test by Tech (2+ Tests) - 3 hours 05/03/23 CPT-46389 EEG EXTENDED 41-60mins (END) ORDERS EEG Sleep [...]
[2025-05-05 17:12] LABS: Hematocrit 40.8 % (37.0-53.0); Hemoglobin* 13.8 gm/dL (13.5-17.5); Immature Granulocytes Abs Auto 0.20 K/uL (0.00-0.30); Immature Granulocytes Pct Auto 1.4 %; Lymphocytes Absolute Auto 2.10 K/uL (0.90-2.90); Mean Corpuscular HGB Conc 34 gm/dL (32-36); Mean Corpuscular Hemoglobin 30 pg (26-34); Mean Corpuscular Volume 90 fL (80-100); RDW Coefficient of Variation % 12.8 % (11.5-15.5); Red Blood Count 4.56 m/uL (4.30-5.90); Slide Review Reflex No; White Blood Count* 13.28 K/uL (4.50-11.00)
[2025-05-05 18:14] VITALS: BP 123/81; PULSE 50; RESP 18
== END 2025-05-05 18:16 | disposition home or self-care (01) ==
PROVIDERS: Emergency Provider Family Medicine
DX: R10.9 Unspecified abdominal pain (principal)
CPT/HCPCS: 36415; 74019; 85025; 99283; 99284; A9270